=== PATIENT | female | born 1965 | race Caucasian/White ===

== ENCOUNTER 2017-06-17 21:18 | Emergency (ER) | payer MEDICARE ==
[2017-06-17 22:25] LABS: BASOPHILS 0.3 % (0-2); EOSINOPHILS 2.1 % (0-7); HEMATOCRIT 37.3 % (36.0-48.0); HEMOGLOBIN 12.5 g/dL (12-16); IMMATURE GRANULOCYTES 0.2 % (0-5); LYMPHOCYTES 38.7 % (15-50); MCHC 33.5 g/dL (31.0-37.0); MCV 89.7 fL (80.0-100.0); MONOCYTES 4.9 % (2-11); NEUTROPHILS 53.8 % (40-80); PLATELET COUNT 331 10x3/uL (130-400); RBC 4.16 10x6/uL (4.00-5.40); RDW 14.4 % (11.5-14.5); WBC 10.7 10x3/uL (4.8-10.8)
[2017-06-17 22:45] LABS: BILIRUBIN - TOTAL 0.12 mg/dL (0.2-1.3); CALCIUM 8.7 mg/dL (8.5-10.1); CARBON DIOXIDE 26.2 mmol/L (21.0-32.0); POTASSIUM - SERUM 3.2 mmol/L (3.5-5.1); PROTEIN - SERUM 7.1 g/dL (6.4-8.2)
[2017-06-17 22:45] LABS: APPEARANCE CLEAR (CLEAR); COLOR YELLOW (YELLOW); SPECIFIC GRAVITY 1.015 (1.005-1.020)
[2017-06-17 22:46] LABS: BILIRUBIN NEGATIVE (NEGATIVE); GLUCOSE NEGATIVE (NEGATIVE); KETONE NEGATIVE (NEGATIVE); LEUKOCYTE ESTERASE NEGATIVE (NEGATIVE); NITRITE NEGATIVE (NEGATIVE); PROTEIN NEGATIVE (NEGATIVE); UROBILINOGEN NORMAL (NORMAL)
== END 2017-06-18 01:35 | disposition home or self-care (01) ==
LOC: D.ER 21:18
PROVIDERS: Emergency Medicine
DX: R11.10 Vomiting, unspecified (principal); N39.0 Urinary tract infection, site not specified; Z32.01 Encounter for pregnancy test, result positive; I10 Essential (primary) hypertension

== ENCOUNTER 2017-07-18 23:38 | Emergency (ER) | payer MEDICARE ==
[2017-07-19 00:06] LABS: BASOPHILS 0.3 % (0-2); EOSINOPHILS 3.8 % (0-7); HEMATOCRIT 37.6 % (36.0-48.0); HEMOGLOBIN 12.8 g/dL (12-16); IMMATURE GRANULOCYTES 0.2 % (0-5); LYMPHOCYTES 43.9 % (15-50); MCH 30.3 pg (26.0-34.0); MCV 88.9 fL (80.0-100.0); NEUTROPHILS 46.8 % (40-80); PLATELET COUNT 335 10x3/uL (130-400); RBC 4.23 10x6/uL (4.00-5.40); RDW 14.9 % (11.5-14.5); WBC 9.8 10x3/uL (4.8-10.8)
[2017-07-19 00:13] LABS: APPEARANCE CLEAR (CLEAR); BILIRUBIN NEGATIVE (NEGATIVE); COLOR YELLOW (YELLOW); GLUCOSE NEGATIVE (NEGATIVE); KETONE NEGATIVE (NEGATIVE); NITRITE NEGATIVE (NEGATIVE); PROTEIN NEGATIVE (NEGATIVE); SPECIFIC GRAVITY 1.005 (1.005-1.020); UROBILINOGEN NORMAL (NORMAL)
[2017-07-19 00:20] LABS: ALBUMIN 3.4 g/dL (3.4-5.0); ANION GAP 13.8 mmol/L (8-16); BILIRUBIN - TOTAL 0.12 mg/dL (0.2-1.3); CALCIUM 9.1 mg/dL (8.5-10.1); POTASSIUM - SERUM 3.8 mmol/L (3.5-5.1); PROTEIN - SERUM 7.4 g/dL (6.4-8.2)
== END 2017-07-19 01:08 | disposition home or self-care (01) ==
LOC: D.ER 23:38
PROVIDERS: Family Medicine
DX: R19.7 Diarrhea, unspecified (principal); K52.9 Noninfective gastroenteritis and colitis, unspecified; I10 Essential (primary) hypertension; F17.200 Nicotine dependence, unspecified, uncomplicated

== ENCOUNTER 2017-09-11 23:29 | Emergency (ER) | payer MEDICARE | END 2017-09-12 00:23 | disposition home or self-care (01) | LOC: D.ER 23:29 | DX: J01.90 Acute sinusitis, unspecified (principal); R50.9 Fever, unspecified; R05 Cough; F17.200 Nicotine dependence, unspecified, uncomplicated; I10 Essential (primary) hypertension ==

== ENCOUNTER 2017-10-05 16:50 | Emergency (ER) | payer MEDICARE ==
[2017-10-05 17:57] LABS: BASOPHILS 0.3 % (0-2); EOSINOPHILS 2.4 % (0-7); HEMATOCRIT 39.4 % (36.0-48.0); IMMATURE GRANULOCYTES 0.2 % (0-5); LYMPHOCYTES 28.2 % (15-50); MCH 30.4 pg (26.0-34.0); MCV 92.1 fL (80.0-100.0); MEAN PLATELET VOLUME 9.1 fL (7.4-10.4); MONOCYTES 4.1 % (2-11); NEUTROPHILS 64.8 % (40-80); PLATELET COUNT 316 10x3/uL (130-400); RBC 4.28 10x6/uL (4.00-5.40); RDW 13.8 % (11.5-14.5); WBC 10.6 10x3/uL (4.8-10.8)
== END 2017-10-05 19:45 | disposition home or self-care (01) ==
LOC: D.ER 16:50
PROVIDERS: Family Medicine
DX: J20.9 Acute bronchitis, unspecified (principal); J06.9 Acute upper respiratory infection, unspecified; I10 Essential (primary) hypertension; F17.200 Nicotine dependence, unspecified, uncomplicated

== ENCOUNTER 2017-12-31 04:37 | Emergency (ER) | payer MEDICARE ==
[2017-12-31 05:25] LABS: BASOPHILS 0.5 % (0-2); EOSINOPHILS 3.3 % (0-7); IMMATURE GRANULOCYTES 0.2 % (0-5); LYMPHOCYTES 32.9 % (15-50); MCH 30.8 pg (26.0-34.0); MCHC 33.3 g/dL (31.0-37.0); MCV 92.3 fL (80.0-100.0); MEAN PLATELET VOLUME 9.3 fL (7.4-10.4); MONOCYTES 6.9 % (2-11); NEUTROPHILS 56.2 % (40-80); PLATELET COUNT 335 10x3/uL (130-400); RDW 13.6 % (11.5-14.5); WBC 9.3 10x3/uL (4.8-10.8)
[2017-12-31 05:47] LABS: INR 1.05 (0.85-1.17); PROTIME 13.3 SECONDS (11.6-15.0)
[2017-12-31 05:48] LABS: APTT 29.4 SECONDS (22.8-39.4)
[2017-12-31 05:49] LABS: D-DIMER-QUANTITATIVE 0.31 ug/mLFEU (0.20-0.54)
[2017-12-31 06:02] LABS: ALBUMIN 3.2 g/dL (3.4-5.0); ALKALINE PHOSPHATASE 129 U/L (46-116); ALT (SGPT) 17 U/L (10-68); BILIRUBIN - TOTAL 0.21 mg/dL (0.2-1.3); CALC OSMOLALITY 281 mosm/kg (275-300); CALCIUM 9.2 mg/dL (8.5-10.1); CARBON DIOXIDE 22.7 mmol/L (21.0-32.0); CHLORIDE - SERUM 106 mmol/L (98-107); CHOL - HDL RATIO 4.6 ratio (2.3-4.1); CHOLESTEROL, TOTAL 143 mg/dL (0-200); CKMB 0.5 U/L (0.0-3.6); CREATINE KINASE 58 UL (21-215); CREATININE - SERUM 0.9 mg/dL (0.6-1.3); GLUCOSE 105 mg/dL (74-106); HDL CHOLESTEROL 31 mg/dL (32-96); MAGNESIUM - SERUM 1.9 mg/dL (1.8-2.4); POTASSIUM - SERUM 3.5 mmol/L (3.5-5.1); PROTEIN - SERUM 7.1 g/dL (6.4-8.2); SODIUM 141 mmol/L (136-145); TRIGLYCERIDE 491 mg/dL (30-200); TROPONIN-I < 0.017 ng/mL (0.000-0.060); UREA NITROGEN 14 mg/dL (7-18); eGFR NON AFRICAN AMERICAN 70 mL/min (90-120)
== END 2017-12-31 09:53 | disposition home or self-care (01) ==
LOC: D.ER 04:37
PROVIDERS: Family Medicine
DX: R07.9 Chest pain, unspecified (principal); I10 Essential (primary) hypertension

== ENCOUNTER 2018-05-01 22:13 | Emergency (ER) | payer MEDICARE ==
[~2018-05-01] VITALS: Ht 170.2 cm; Wt 90.9 kg
[2018-05-01] MEDS ORDERED: ZANAFLEX4 MG PO (22:35)
[2018-05-01 22:36] VITALS: Ht 170.2 cm; Wt 90.9 kg
[2018-05-02] MEDS ORDERED: NAPROSYN500 MG PO (00:08)
[2018-05-02] MEDS ORDERED: STERAPRED DS 1010 MG PO (00:08)
[2018-05-02 01:08] VITALS: BP 122/70
== END 2018-05-02 01:08 | disposition home or self-care (01) ==
LOC: D.ER 22:13
DX: M54.12 Radiculopathy, cervical region (principal); M54.6 Pain in thoracic spine; F17.200 Nicotine dependence, unspecified, uncomplicated

== ENCOUNTER 2018-06-20 21:02 | Emergency (ER) | payer MEDICARE ==
[~2018-06-20] VITALS: Ht 170.2 cm; Wt 90.9 kg
[~2018-06-20 21:02] MED LIST: NAPROSYN500 MG PO; STERAPRED DS 1010 MG PO; ZANAFLEX4 MG PO
[2018-06-20 21:15] VITALS: Ht 170.2 cm; Wt 90.9 kg
[2018-06-20] MEDS ORDERED: VIBRAMYCIN 100100 MG PO (21:38)
[2018-06-20] MEDS ORDERED: PHENERGAN DM SYR5 ML PO (21:38)
[2018-06-20 22:42] VITALS: BP 158/87
== END 2018-06-20 22:42 | disposition home or self-care (01) ==
LOC: D.ER 21:02
DX: J40 Bronchitis, not specified as acute or chronic (principal); J06.9 Acute upper respiratory infection, unspecified; R09.89 Other specified symptoms and signs involving the circulatory and respiratory systems; J02.9 Acute pharyngitis, unspecified; F17.200 Nicotine dependence, unspecified, uncomplicated

== ENCOUNTER 2018-09-07 20:26 | Emergency (ER) | payer MEDICARE ==
[~2018-09-07] VITALS: Ht 170.2 cm; Wt 90.9 kg
[~2018-09-07 20:26] MED LIST changes: +PHENERGAN DM SYR5 ML PO; +VIBRAMYCIN 100100 MG PO
[2018-09-07 20:32] VITALS: Ht 170.2 cm; Wt 90.9 kg
[2018-09-07] MEDS ORDERED: NORVASC5 MG PO (20:36)
[2018-09-07] MEDS ORDERED: TOPROL XL100 MG PO (20:36)
[2018-09-07] MEDS ORDERED: LOPID600 MG PO (20:36)
[2018-09-07] MEDS ORDERED: ESTRACE2 MG PO (20:37)
[2018-09-07] MEDS ORDERED: TRAZODONE HCL150 MG PO (20:37)
[2018-09-07] MEDS ORDERED: VOLTAREN75 MG PO (20:37)
[2018-09-07] MEDS ORDERED: PAXIL20 MG PO (20:37)
[2018-09-07] MEDS ORDERED: KLONOPIN1 MG PO (20:38)
[2018-09-07] MEDS ORDERED: NEURONTIN600 MG PO (20:38)
[2018-09-07] MEDS ORDERED: ZPAK PO (21:29)
[2018-09-07 22:34] VITALS: BP 128/71
== END 2018-09-07 22:05 | disposition home or self-care (01) ==
LOC: D.ER 20:26
DX: J06.9 Acute upper respiratory infection, unspecified (principal); M79.18 Myalgia, other site; R11.10 Vomiting, unspecified; F17.200 Nicotine dependence, unspecified, uncomplicated

== ENCOUNTER 2018-11-19 17:12 | Emergency (ER) | payer MEDICARE ==
[~2018-11-19] VITALS: Ht 170.2 cm; Wt 90.9 kg
[~2018-11-19 17:12] MED LIST changes: +ESTRACE2 MG PO; +KLONOPIN1 MG PO; +LOPID600 MG PO; +NEURONTIN600 MG PO; +NORVASC5 MG PO; +PAXIL20 MG PO; +TOPROL XL100 MG PO; +TRAZODONE HCL150 MG PO; +VOLTAREN75 MG PO; +ZPAK PO
[2018-11-19 17:31] VITALS: Ht 170.2 cm; Wt 90.9 kg
[2018-11-19] MEDS ORDERED: ZPAK PO (20:31)
[2018-11-19 20:50] VITALS: BP 132/85
[2018-11-20] MEDS ORDERED: MEDROL DOSE PACK4 MG PO (21:50)
[2018-11-20] MEDS ORDERED: CLARITIN 10 MG10 MG PO (21:50)
== END 2018-11-19 20:51 | disposition home or self-care (01) ==
LOC: D.ER 17:12
DX: J40 Bronchitis, not specified as acute or chronic (principal); J06.9 Acute upper respiratory infection, unspecified

== ENCOUNTER 2018-11-20 19:34 | Emergency (ER) | payer MEDICARE ==
[~2018-11-20] VITALS: Ht 170.2 cm; Wt 90.9 kg
[2018-11-20 19:38] VITALS: Ht 170.2 cm; Wt 90.9 kg
[2018-11-20] MEDS ORDERED: MEDROL DOSE PACK4 MG PO (21:50)
[2018-11-20] MEDS ORDERED: CLARITIN 10 MG10 MG PO (21:50)
[2018-11-20 22:30] VITALS: BP 132/79
== END 2018-11-20 22:30 | disposition home or self-care (01) ==
LOC: D.ER 19:34
DX: J40 Bronchitis, not specified as acute or chronic (principal); F17.200 Nicotine dependence, unspecified, uncomplicated

== ENCOUNTER 2018-11-27 21:16 | Emergency (ER) | payer MEDICARE ==
[~2018-11-27] VITALS: Ht 170.2 cm; Wt 90.9 kg
[~2018-11-27 21:16] MED LIST changes: +CLARITIN 10 MG10 MG PO; +MEDROL DOSE PACK4 MG PO
[2018-11-27 21:23] VITALS: Ht 170.2 cm; Wt 90.9 kg
[2018-11-27 22:45] VITALS: BP 40/82
== END 2018-11-27 22:45 | disposition home or self-care (01) ==
LOC: D.ER 21:16
DX: S80.11XA Contusion of right lower leg, initial encounter (principal); W18.2XXA Fall in (into) shower or empty bathtub, initial encounter; Y93.E1 Activity, personal bathing and showering; Y92.012 Bathroom of single-family (private) house as the place of occurrence of the external cause; J01.90 Acute sinusitis, unspecified; I10 Essential (primary) hypertension

== ENCOUNTER 2018-12-24 23:00 | Emergency (ER) | payer MEDICARE ==
[~2018-12-24] VITALS: Ht 170.2 cm; Wt 100.0 kg
[2018-12-24 23:23] VITALS: Ht 170.2 cm; Wt 100.0 kg
[2018-12-25] MEDS ORDERED: ULTRAM50 MG PO (00:09)
[2018-12-25 00:25] VITALS: BP 132/81
== END 2018-12-25 00:25 | disposition home or self-care (01) ==
LOC: D.ER 23:00
DX: M54.16 Radiculopathy, lumbar region (principal)

== ENCOUNTER 2019-01-13 19:49 | Emergency (ER) | payer MEDICARE ==
[~2019-01-13] VITALS: Ht 170.2 cm; Wt 90.9 kg
[~2019-01-13 19:49] MED LIST changes: +ULTRAM50 MG PO
[2019-01-13 19:54] VITALS: Ht 170.2 cm; Wt 90.9 kg
[2019-01-13] MEDS ORDERED: SKELAXIN800 MG PO (20:33)
[2019-01-13] MEDS ORDERED: ACETAMINOPHEN500 M1 PO (20:33)
[2019-01-13] MEDS ORDERED: IBUPROFEN800 MG PO (20:33)
--- NOTE | 2019-01-13 20:48 | NUR ---
CM faxed referral to [facility] #[phone]. Patient is in agreement to same. CM verified phone number,address. Faye Hathaway RN, CM
[2019-01-13 21:14] VITALS: BP 138/78
== END 2019-01-13 21:15 | disposition home or self-care (01) ==
LOC: D.ER 19:49
DX: M54.5 Low back pain (principal)

== ENCOUNTER 2019-05-22 00:53 | Emergency (ER) | payer MEDICARE ==
[~2019-05-22] VITALS: Ht 170.2 cm; Wt 90.9 kg
[~2019-05-22 00:53] MED LIST changes: +ACETAMINOPHEN500 M1 PO; +IBUPROFEN800 MG PO; +SKELAXIN800 MG PO
[2019-05-22 00:57] VITALS: Ht 170.2 cm; Wt 90.9 kg
[2019-05-22 01:31] LABS: HEMATOCRIT 35.7 % (36.0-48.0); HEMOGLOBIN 12.1 g/dL (12-16); MCH 28.9 pg (26.0-34.0); MCHC 33.9 g/dL (31.0-37.0); MCV 85.2 fL (80.0-100.0); MEAN PLATELET VOLUME 8.7 fL (7.4-10.4); RBC 4.19 10x6/uL (4.00-5.40); RDW 14.6 % (11.5-14.5); WBC 13.3 10x3/uL (4.8-10.8)
[2019-05-22 01:32] LABS: PLATELET COUNT 426 10x3/uL (130-400)
[2019-05-22 01:50] LABS: ALBUMIN 3.2 g/dL (3.4-5.0); ANION GAP 15.3 mmol/L (8-16); BILIRUBIN - TOTAL 0.21 mg/dL (0.2-1.3); C-REACTIVE PROTEIN 1.5 mg/dL (0.0-0.9); CALCIUM 8.7 mg/dL (8.5-10.1); CARBON DIOXIDE 23.1 mmol/L (21.0-32.0); POTASSIUM - SERUM 3.4 mmol/L (3.5-5.1); PROTEIN - SERUM 7.6 g/dL (6.4-8.2); THYROID STIMULATING HORMONE 4.43 uIU/mL (0.36-3.74)
[2019-05-22] MEDS ORDERED: KLOR-CON 1010 MEQ PO (02:00)
[2019-05-22] MEDS ORDERED: LEVOXYL50 MCG PO (02:00)
[2019-05-22 02:03] LABS: EOSINOPHILS 3 % (0-7); LYMPHOCYTES 25 % (15-50); MONOCYTES 6 % (2-11); NEUTROPHILS 65 % (40-80); PLATELET ESTIMATE INCREASED
[2019-05-22 02:50] VITALS: BP 130/75
== END 2019-05-22 02:49 | disposition home or self-care (01) ==
LOC: D.ER 00:53
PROVIDERS: Family Medicine
DX: R25.2 Cramp and spasm (principal); R74.8 Abnormal levels of other serum enzymes; M79.18 Myalgia, other site; E87.6 Hypokalemia

== ENCOUNTER 2019-06-03 23:04 | Emergency (ER) | payer MEDICARE ==
[~2019-06-03] VITALS: Ht 170.2 cm; Wt 103.6 kg
[~2019-06-03 23:04] MED LIST changes: +KLOR-CON 1010 MEQ PO; +LEVOXYL50 MCG PO
[2019-06-03 23:09] VITALS: Ht 170.2 cm; Wt 103.6 kg
[2019-06-03 23:34] LABS: BASOPHILS 0.4 % (0-2); EOSINOPHILS 2.7 % (0-7); HEMATOCRIT 35.2 % (36.0-48.0); HEMOGLOBIN 11.8 g/dL (12-16); IMMATURE GRANULOCYTES 0.1 % (0-5); MCH 28.7 pg (26.0-34.0); MCHC 33.5 g/dL (31.0-37.0); MCV 85.6 fL (80.0-100.0); MONOCYTES 6.7 % (2-11); NEUTROPHILS 63.1 % (40-80); PLATELET COUNT 398 10x3/uL (130-400); RBC 4.11 10x6/uL (4.00-5.40); WBC 6.7 10x3/uL (4.8-10.8)
[2019-06-03 23:40] LABS: ANION GAP 13.8 mmol/L (8-16); CARBON DIOXIDE 26.1 mmol/L (21.0-32.0); POTASSIUM - SERUM 3.9 mmol/L (3.5-5.1)
[2019-06-03 23:52] LABS: ALBUMIN 3.3 g/dL (3.4-5.0); BILIRUBIN - TOTAL 0.17 mg/dL (0.2-1.3); CALCIUM 8.6 mg/dL (8.5-10.1); PROTEIN - SERUM 7.3 g/dL (6.4-8.2)
[2019-06-04] MEDS ORDERED: LOMOTIL 2.5-0.1 EAC1 PO (00:43)
[2019-06-04] MEDS ORDERED: PHENERGAN25 MG RC (00:43)
[2019-06-04 02:04] VITALS: BP 137/79
== END 2019-06-04 02:04 | disposition home or self-care (01) ==
LOC: D.ER 23:04
PROVIDERS: Emergency Medicine
DX: R11.10 Vomiting, unspecified (principal); D64.9 Anemia, unspecified; R19.7 Diarrhea, unspecified

== ENCOUNTER 2019-06-17 02:48 | Emergency (ER) | payer MEDICARE ==
[~2019-06-17] VITALS: Ht 170.2 cm; Wt 104.5 kg
[~2019-06-17 02:48] MED LIST changes: +LOMOTIL 2.5-0.1 EAC1 PO; +PHENERGAN25 MG RC
[2019-06-17 02:53] VITALS: Ht 170.2 cm; Wt 104.5 kg
[2019-06-17] MEDS ORDERED: HYDROCODON-ACE1 EA10 PO (02:57)
[2019-06-17] MEDS ORDERED: CYCLOBENZAPRINE10 MG PO (03:37)
--- NOTE | 2019-06-17 03:53 | NUR ---
DR FELDER NOTIFIED AND REVIEWED PT'S BEHAVIOR AND ASSESSMENT RESULTS. PT IS A LOW RISK PER DR FELDER. DR FELDER STATED TO GIVE RESOURCES TO PT AT TIME OF DISCHARGE. NO FURTHER ORDERS AT THIS TIME. RESOURCES REVIEWED WITH PT AND SHE VERBALIZED UNDERSTANDING.
[2019-06-17 03:59] VITALS: BP 127/76
== END 2019-06-17 04:00 | disposition home or self-care (01) ==
LOC: D.ER 02:48
DX: S16.1XXA Strain of muscle, fascia and tendon at neck level, initial encounter (principal); X58.XXXA Exposure to other specified factors, initial encounter

== ENCOUNTER 2019-07-03 23:04 | Emergency (ER) | payer MEDICARE ==
[~2019-07-03] VITALS: Ht 170.2 cm; Wt 103.6 kg
[~2019-07-03 23:04] MED LIST changes: +CYCLOBENZAPRINE10 MG PO; +HYDROCODON-ACE1 EA10 PO
[2019-07-03 23:06] VITALS: Ht 170.2 cm; Wt 103.6 kg
[2019-07-03] MEDS ORDERED: PAXIL40 MG PO (23:09)
[2019-07-03] MEDS ORDERED: NEURONTIN800 MG PO (23:09)
[2019-07-03 23:39] LABS: BASOPHILS 0.4 % (0-2); EOSINOPHILS 2.4 % (0-7); HEMATOCRIT 35.1 % (36.0-48.0); HEMOGLOBIN 11.3 g/dL (12-16); IMMATURE GRANULOCYTES 0.4 % (0-5); LYMPHOCYTES 28.8 % (15-50); MCH 27.4 pg (26.0-34.0); MCHC 32.2 g/dL (31.0-37.0); MEAN PLATELET VOLUME 8.7 fL (7.4-10.4); MONOCYTES 6.8 % (2-11); NEUTROPHILS 61.2 % (40-80); PLATELET COUNT 427 10x3/uL (130-400); RBC 4.13 10x6/uL (4.00-5.40); RDW 16.3 % (11.5-14.5); WBC 8.4 10x3/uL (4.8-10.8)
[2019-07-03 23:58] LABS: ALBUMIN 3.2 g/dL (3.4-5.0); ANION GAP 14.9 mmol/L (8-16); BILIRUBIN - TOTAL 0.2 mg/dL (0.2-1.3); CALCIUM 8.9 mg/dL (8.5-10.1); CARBON DIOXIDE 24.9 mmol/L (21.0-32.0); CREATININE - SERUM 0.9 mg/dL (0.6-1.3); POTASSIUM - SERUM 3.8 mmol/L (3.5-5.1); PROTEIN - SERUM 7.5 g/dL (6.4-8.2)
[2019-07-04 00:23] LABS: APPEARANCE CLEAR (CLEAR); BILIRUBIN NEGATIVE (NEGATIVE); COLOR YELLOW (YELLOW); GLUCOSE NEGATIVE (NEGATIVE); KETONE NEGATIVE (NEGATIVE); NITRITE NEGATIVE (NEGATIVE); PROTEIN NEGATIVE (NEGATIVE); UROBILINOGEN NORMAL (NORMAL)
[2019-07-04 00:24] LABS: EPITHELIAL CELLS 0-5 /hpf (0-5); RED CELLS - URINE 0-5 /hpf (0-5); WHITE CELLS - URINE 0-5 /hpf (NEGATIVE)
[2019-07-04 00:25] LABS: BACTERIA MODERATE /hpf (NEGATIVE)
[2019-07-04] MEDS ORDERED: FLUTICASONE PRO16 GM NASAL (00:34)
[2019-07-04] MEDS ORDERED: AUGMENTIN 875-11 TAB PO (00:34)
[2019-07-04 00:54] VITALS: BP 157/85
== END 2019-07-04 00:55 | disposition home or self-care (01) ==
LOC: D.ER 23:04
PROVIDERS: Family Medicine
DX: J01.90 Acute sinusitis, unspecified (principal); I10 Essential (primary) hypertension; F32.9 Major depressive disorder, single episode, unspecified; F17.210 Nicotine dependence, cigarettes, uncomplicated

== ENCOUNTER 2019-08-19 00:32 | Inpatient (IN) | payer MEDICARE ==
[~2019-08-19] VITALS: Ht 170.2 cm; Wt 104.5 kg
[~2019-08-19 00:32] MED LIST changes: +AUGMENTIN 875-11 TAB PO; +FLUTICASONE PRO16 GM NASAL; +NEURONTIN800 MG PO; +PAXIL40 MG PO
[2019-08-19 01:19] LABS: BASOPHILS 0.6 % (0-2); HEMATOCRIT 36.7 % (36.0-48.0); IMMATURE GRANULOCYTES 0.9 % (0-5); LYMPHOCYTES 30.6 % (15-50); MCH 28.8 pg (26.0-34.0); MCHC 32.7 g/dL (31.0-37.0); MCV 88.2 fL (80.0-100.0); MEAN PLATELET VOLUME 9.3 fL (7.4-10.4); MONOCYTES 5.8 % (2-11); NEUTROPHILS 59.1 % (40-80); PLATELET COUNT 424 10x3/uL (130-400); RBC 4.16 10x6/uL (4.00-5.40); RDW 17.1 % (11.5-14.5)
[2019-08-19 01:25] LABS: CALC OSMOLALITY 279 mosm/kg (275-300); CALCIUM 8.8 mg/dL (8.5-10.1); CARBON DIOXIDE 22.2 mmol/L (21.0-32.0); CHLORIDE - SERUM 105 mmol/L (98-107); CREATININE - SERUM 0.8 mg/dL (0.6-1.3); GLUCOSE 95 mg/dL (74-106); POTASSIUM - SERUM 3.9 mmol/L (3.5-5.1); SODIUM 140 mmol/L (136-145); UREA NITROGEN 16 mg/dL (7-18); eGFR NON AFRICAN AMERICAN 80 mL/min (90-120)
[2019-08-19 01:26] LABS: APTT 30.3 SECONDS (22.8-39.4); INR 0.93 (0.85-1.17)
[2019-08-19 01:41] LABS: ALBUMIN 3.1 g/dL (3.4-5.0); ALKALINE PHOSPHATASE 124 U/L (46-116); ALT (SGPT) 16 U/L (10-68); BILIRUBIN - TOTAL 0.15 mg/dL (0.2-1.3); CKMB 0.7 U/L (0.0-3.6); CREATINE KINASE 55 UL (21-215); PRO BNP 48 pg/mL (0-125); PROTEIN - SERUM 7.6 g/dL (6.4-8.2); TROPONIN-I < 0.017 ng/mL (0.000-0.060)
[2019-08-19 04:30] VITALS: BP 105/56
--- NOTE | 2019-08-19 05:10 | NUR ---
REC'D TO ROOM 2238 PER W/C FROM ER DEPT A 54 Y/O W/FE PER SERVICES DR. CRAIG WITH DX.COUGH/CONGESTION. ALLERGY= REGLAN.SALINE LOCK TO RT WIST O2 ON 4L/M PER NC SOB WITH EXERTION. NON PRODUCTIVE COUGH. ASSEWSSMENT PER ADMIT PACKET.
[2019-08-19 05:22] VITALS: Ht 170.2 cm; Wt 104.5 kg
[2019-08-19] MEDS ORDERED: NEXIUM40 MG PO (06:00)
--- NOTE | 2019-08-19 07:56 | NUR ---
PT RESTING IN BED WITH EYES OPEN, ALERT AND ORIENTED. IV DC`D FROM RIGHT WRIST DUE TO INFILTRATION, WILL RESITE. CURRENTLY RCVING 4L VIA NC. NO S/S OF DISTRESS NOTED AT THIS TIME, DENIES NEEDS, WILL CONT TO MONITOR.
[2019-08-19 09:02] VITALS: BP 138/73
[2019-08-19 13:07] VITALS: BP 122/62
[2019-08-19 16:45] VITALS: BP 145/71
[2019-08-19 19:30] VITALS: BP 124/64
--- NOTE | 2019-08-19 20:00 | NUR ---
A&O X 4, AMBULATORY AD MARY CARMEN. PTs BREATHING APPEARS LABORED. REPORTS HER NOSE IS GETTING INCREASINGLY MORE DRY. HUMIDITY APPLIED TO 4L NC. VS STABLE, CONTINUE PLAN OF CARE.
[2019-08-20] VITALS: BP 124/70
[2019-08-20 04:00] VITALS: BP 112/52
[2019-08-20 06:38] LABS: BASOPHILS 0.1 % (0-2); EOSINOPHILS 0 % (0-7); HEMATOCRIT 33.3 % (36.0-48.0); HEMOGLOBIN 10.6 g/dL (12-16); IMMATURE GRANULOCYTES 1.1 % (0-5); LYMPHOCYTES 7.1 % (15-50); MCH 28.2 pg (26.0-34.0); MCHC 31.8 g/dL (31.0-37.0); MCV 88.6 fL (80.0-100.0); MEAN PLATELET VOLUME 9.1 fL (7.4-10.4); MONOCYTES 2.3 % (2-11); NEUTROPHILS 89.4 % (40-80); PLATELET COUNT 390 10x3/uL (130-400); RBC 3.76 10x6/uL (4.00-5.40); RDW 17.3 % (11.5-14.5)
[2019-08-20 06:47] LABS: WBC 19.1 10x3/uL (4.8-10.8)
[2019-08-20 07:07] LABS: ALBUMIN 3.1 g/dL (3.4-5.0); ALKALINE PHOSPHATASE 111 U/L (46-116); ALT (SGPT) 14 U/L (10-68); BILIRUBIN - TOTAL 0.18 mg/dL (0.2-1.3); CALC OSMOLALITY 279 mosm/kg (275-300); CALCIUM 9.5 mg/dL (8.5-10.1); CHLORIDE - SERUM 105 mmol/L (98-107); CREATININE - SERUM 0.8 mg/dL (0.6-1.3); GLUCOSE 132 mg/dL (74-106); PROTEIN - SERUM 6.9 g/dL (6.4-8.2); SODIUM 138 mmol/L (136-145); UREA NITROGEN 18 mg/dL (7-18); eGFR NON AFRICAN AMERICAN 80 mL/min (90-120)
[2019-08-20 07:09] LABS: POTASSIUM - SERUM 4.5 mmol/L (3.5-5.1)
[2019-08-20 08:07] VITALS: BP 127/66
[2019-08-20 12:58] VITALS: BP 112/56
--- NOTE | 2019-08-20 16:35 | MORECARE ---
CASE MANAGEMENT DISCHARGE SUMMARY PATIENT: DRAKE VOGEL UNIT: [id number] ADM DATE: 08/19/19 AGE: 54 : 69 SEX: F ROOM/BED: D.2238 AUTHOR: ABILIO KUMAR PHYSICIAN: REFERRING PHYSICIAN: YANE CRAIG MD DATE OF SERVICE: 08/20/19 Discharge Plan Patient Name: DRAKE VOGEL [facility] [facility] 1965 Planned Disposition: Home Anticipated Discharge Date: Discharge Date: Expected LOS: Initial Reviewer: [email or web address] Initial Review Date: 08/20/2019 Generated: 08/20/19 5:35 pm Patient Name: DRAKE VOGEL Page 99867 at 1635 All edits/amendments must be made on the electronic document DICTATION DATE: 08/20/191634 SIMONIZER: MICHAEL 08/20/19 1635 RPT#: [id number] DC DATE: STATUS: ADM IN [facility] [address] [place] [address] END OF REPORT
--- NOTE | 2019-08-20 16:43 | MORECARE ---
CASE MANAGEMENT DISCHARGE SUMMARY PATIENT: DRAKE VOGEL UNIT: [id number] ADM DATE: 08/19/19 AGE: 54 : 69 SEX: F ROOM/BED: D.2238 AUTHOR: JOSÉ,DOC PHYSICIAN: REFERRING PHYSICIAN: YANE CRAIG MD DATE OF SERVICE: 08/20/19 Discharge Plan Patient Name: DRAKE VOGEL Facility: [facility]:[place] : 1965 Planned Disposition: Home Anticipated Discharge Date: Discharge Date: Expected LOS: Initial Reviewer: [email or web address] Initial Review Date: 08/20/2019 Generated: 08/20/19 5:42 pm Comments DCP- Discharge Planning Updated by [id number]: Esther Childs on 08/20/19 3:[address] Patient Name: DRAKE VOGEL Admission Status: ER Accout number: [id number] Admission Date: 08-19-2019 : 1965 Admission Diagnosis: Attending: YANE CRAIG Current LOS: 1 Anticipated DC Date: Planned Disposition: Home Primary Insurance: MEDICARE A & B Discharge Planning Comments: CM met with patient to complete initial dc planning assessment. CM educated patient on the CM role and verbal consent given by patient to complete assessment. Patient lives at home alone. At discharge patient plans to return and feels this is a safe discharge. CM discussed availability of home health, rehab services, and medical equipment. Patient denied known discharge needs at this time. I informed the patient that Dr. Carter has stated that she may need an overnight pulse oximeter and a sleep study on an outpatient basis and a NATE form for oxygen DME companies given for her to review. I also provided her with the Med data number to f/u on Medicaid spend down. She is inquiring about a secondary for Medicare. I gave her the number for [employer] as well. CM will continue to follow and will assist as needed with dc plans/needs. Mold Maker Apprentice: Esther Childs DCPIA - Discharge Planning Initial Assessment Updated by [email or web address]: Esther Childs on 08/20/19 4:37 pm * Is the patient Alert and Oriented? Yes * How many steps to enter\exit or inside your home? 10/0 * PCP Dr. Austin Paul * Pharmacy [facility] * Preadmission Environment Home Alone * ADLs Independent * Equipment Cane Shower Chair Walker * List name and contact numbers for known caregivers / representatives who currently or will assist patient after discharge: Jareth Aguilar - son - [phone] Irving angelofriend - [phone] * Verbal permission to speak to the caregivers and representatives has been obtained from the patient. Yes * Community resources currently utilized None * Additional services required to return to the preadmission environment? No * Can the patient safely return to the preadmission environment? Yes * Has this patient been hospitalized within the prior 30 days at any hospital? No Last DP export: 08/20/19 3:35 Patient Name: DRAKE VOGEL Page 94857 at 1643 All edits/amendments must be made on the electronic document DICTATION DATE: 08/20/191642 TAX MAP TECHNICIAN: MICHAEL 08/20/191642 RPT#: [id number] DC DATE: STATUS: ADM IN [facility] [address] [place] [address] END OF REPORT
[2019-08-20 17:43] VITALS: BP 124/68
[2019-08-20 20:00] VITALS: BP 147/81
[2019-08-21] VITALS: BP 140/82
[2019-08-21 04:00] VITALS: BP 146/81
[2019-08-21 06:52] LABS: BASOPHILS 0 % (0-2); EOSINOPHILS 0 % (0-7); HEMATOCRIT 35.2 % (36.0-48.0); HEMOGLOBIN 11.1 g/dL (12-16); IMMATURE GRANULOCYTES 1.5 % (0-5); MCH 28.2 pg (26.0-34.0); MCHC 31.5 g/dL (31.0-37.0); MCV 89.6 fL (80.0-100.0); MEAN PLATELET VOLUME 9.3 fL (7.4-10.4); MONOCYTES 2.5 % (2-11); PLATELET COUNT 426 10x3/uL (130-400); RBC 3.93 10x6/uL (4.00-5.40); RDW 17.6 % (11.5-14.5); WBC 22.2 10x3/uL (4.8-10.8)
[2019-08-21 07:02] LABS: ALBUMIN 3.2 g/dL (3.4-5.0); ALKALINE PHOSPHATASE 106 U/L (46-116); ALT (SGPT) 17 U/L (10-68); BILIRUBIN - TOTAL 0.15 mg/dL (0.2-1.3); CALCIUM 9.6 mg/dL (8.5-10.1); CARBON DIOXIDE 23.2 mmol/L (21.0-32.0); CHLORIDE - SERUM 106 mmol/L (98-107); CREATININE - SERUM 0.8 mg/dL (0.6-1.3); GLUCOSE 135 mg/dL (74-106); POTASSIUM - SERUM 4.2 mmol/L (3.5-5.1); PROTEIN - SERUM 7.1 g/dL (6.4-8.2); SODIUM 141 mmol/L (136-145); eGFR NON AFRICAN AMERICAN 80 mL/min (90-120)
[2019-08-21 07:05] LABS: CALC OSMOLALITY 289 mosm/kg (275-300); UREA NITROGEN 31 mg/dL (7-18)
[2019-08-21 08:10] LABS: IMMUNOGLOBULIN A 226 mg/dL (87-352); IMMUNOGLOBULIN G 850 mg/dL (700-1600)
[2019-08-21 08:45] VITALS: BP 132/68
--- NOTE | 2019-08-21 10:59 | NUR ---
PT ALERT X 4. BREATH SOUNDS CLEAR BILAT, NON-PRODUCTIVE COUGH. NO IV ACCESS AT THIS TIME TIME. PT REPORTING PAIN OF 4/10, MEDICATED PER ORDERS, WILL MONITOR. BED LOW, CALL LIGHT IN REACH. NO OTHER NEEDS AT THIS TIME.
[2019-08-21] MEDS ORDERED: SINGULAIR10 MG PO (12:31)
[2019-08-21] MEDS ORDERED: MUCINEX DM ER1 EAC1 PO (12:31)
[2019-08-21] MEDS ORDERED: FLORAJEN3 CAPS460 MG PO (12:31)
[2019-08-21] MEDS ORDERED: PULMICORT0.5 MG/21 UPD (12:31)
[2019-08-21 12:32] VITALS: BP 152/77
[2019-08-21] MEDS ORDERED: ZITHROMAX500 MG PO (12:32)
[2019-08-21] MEDS ORDERED: OMNICEF300 MG PO (12:32)
[2019-08-21] MEDS ORDERED: PREDNISONE10 MG PO (12:32)
[2019-08-21] MEDS ORDERED: ALBUTEROL2.5 MG/3 M INH (12:33)
[2019-08-21] MEDS ORDERED: Tessalon Perle PO (12:33)
[2019-08-21] MEDS ORDERED: SYMBICORT 16010.2 GM INH (13:05)
[2019-08-21] MEDS ORDERED: IPRAT-ALBUT 0.5-3 ML UPD (13:05)
--- NOTE | 2019-08-21 18:37 | MORECARE ---
CASE MANAGEMENT DISCHARGE SUMMARY PATIENT: DRAKE VOGEL UNIT: [id number] ADM DATE: 08/19/19 AGE: 54 : 69 SEX: F ROOM/BED: D.2238 AUTHOR: JOSÉ,ABILIO PHYSICIAN: REFERRING PHYSICIAN: YANE CRAIG MD DATE OF SERVICE: 08/21/19 Discharge Plan Patient Name: DRAKE VOGEL Facility: [facility]:[place] : 1965 Planned Disposition: Home Anticipated Discharge Date: Discharge Date: 08/21/2019 Expected LOS: Initial Reviewer: [email or web address] Initial Review Date: 08/20/2019 Generated: 08/21/19 7:36 pm Comments DCP- Discharge Planning Updated by [email or web address]: Ave Lorenzo on 08/21/19 5:[address] LATE ENTRY- 1430 PATIENT HAD A NEBULIZER ORDERED. SHE HAD A DME LIST AND SELECTED [facility]. TC TO [facility]. HE CALLED TO SPEAK WITH THE PATIENT. SHE RECEIVED A NEB TREATMENT PRIOR TO DISCHARGE. THE NEBULIZER WILL BE DELIVERED TO HER HOME. WATCH REPAIR TECHNICIAN SPOKE WITH THE PATIENT. THE WATCH REPAIR TECHNICIAN CAME ON SITE TO OBTAIN THE FACE SHEET, MD ORDER AND CLINICAL INFORMATION FOR THE NEB PRIOR TO DELIVERY. DCP- Discharge Planning Updated by [email or web address]: Esther Childs on 08/20/19 3:[address] Patient Name: DRAKE VOGEL Admission Status: ER Accout number: [id number] Admission Date: 08-19-2019 : 1965 Admission Diagnosis: Attending: YANE CRAIG Current LOS: 1 Anticipated DC Date: Planned Disposition: Home Primary Insurance: MEDICARE A & B Discharge Planning Comments: CM met with patient to complete initial dc planning assessment. CM educated patient on the CM role and verbal consent given by patient to complete assessment. Patient lives at home alone. At discharge patient plans to return and feels this is a safe discharge. CM discussed availability of home health, rehab services, and medical equipment. Patient denied known discharge needs at this time. I informed the patient that Dr. Carter has stated that she may need an overnight pulse oximeter and a sleep study on an outpatient basis and a NATE form for oxygen DME companies given for her to review. I also provided her with the Med data number to f/u on Medicaid spend down. She is inquiring about a secondary for Medicare. I gave her the number for [employer] as well. CM will continue to follow and will assist as needed with dc plans/needs. Nursing Home Director: Esther Childs DCPIA - Discharge Planning Initial Assessment Updated by [email or web address]: Esther Childs on 08/20/19 4:37 pm * Is the patient Alert and Oriented? Yes * How many steps to enter\exit or inside your home? 10/0 * PCP Dr. Austin Paul * Pharmacy [facility] * Preadmission Environment Home Alone * ADLs Independent * Equipment Cane Shower Chair Walker * List name and contact numbers for known caregivers / representatives who currently or will assist patient after discharge: Jareth Aguilar - rossy - [phone] Irving anderson - [phone] * Verbal permission to speak to the caregivers and representatives has been obtained from the patient. Yes * Community resources currently utilized None * Additional services required to return to the preadmission environment? No * Can the patient safely return to the preadmission environment? Yes * Has this patient been hospitalized within the prior 30 days at any hospital? No Coverage Notice Reviewer: [email or web address] Lauro Lorenzo Notice Issued Date-Time: 08/21/2019 15:31 Notice Type: IM Discharge Notice Notice Delivered To: Patient Relationship to Patient: Self Epic Kaleidoscope Analyst Name: Delivery Method: HAND - Hand Delivered Arlene Days: Prior Verbal Notification: Recipient Understood Notice: Yes Recipient Signature: Yes Med Rec Note Co-signed by Attending: Coverage Notice Comment: DISCHARGE IMM EXPLAINED ANS SERVED AT 1531. PATIENT HAD NO QUESTIONS. VOICED NO CONCERNS. SIGNED COPY TO THE PATIENT. SIGNED COPY TO THE CHART. Reviewer: [email or web address] - Ave Lorenzo Notice Issued Date-Time: 08/21/2019 14:32 Notice Type: Patient Choice Letter Notice Delivered To: Patient Relationship to Patient: Self Epic Kaleidoscope Analyst Name: Delivery Method: HAND - Hand Delivered Arlene Days: Prior Verbal Notification: Recipient Understood Notice: Yes Recipient Signature: Yes Med Rec Note Co-signed by Attending: Coverage Notice Comment: PATIENT CHOICE FORM OBTAINED FOR NEBULIZER. [facility] SELECTED. SIGNED COPY TO THE PATIENT. SIGNED COPY TO HARD COVER CHART Last DP export: 08/20/19 3:43 Patient Name: DRAKE VOGEL Page 62867 at 1837 All edits/amendments must be made on the electronic document DICTATION DATE: 08/21/191835 OPERATIONS INTELLIGENCE SUPERINTENDENT: MICHAEL 08/21/191835 RPT#: [id number] DC DATE:08/21/19 STATUS: DIS IN [facility] [address] [place] [address] END OF REPORT
--- NOTE | 2019-08-23 14:18 | MORECARE ---
CASE MANAGEMENT DISCHARGE SUMMARY PATIENT: DRAKE VOGEL UNIT: [id number] ADM DATE: 08/19/19 AGE: 54 : 69 SEX: F ROOM/BED: D.2238 AUTHOR: ABILIO KUMAR PHYSICIAN: REFERRING PHYSICIAN: YANE CRAIG MD DATE OF SERVICE: 08/23/19 Discharge Plan Patient Name: DRAKE VOGEL Facility: [facility]:[place] : 1965 Planned Disposition: Home Anticipated Discharge Date: Discharge Date: 08/21/2019 Expected LOS: Initial Reviewer: [email or web address] Initial Review Date: 08/20/2019 Generated: 08/23/19 3:17 pm Comments DCP- Discharge Planning Updated by [email or web address]: Ave Lorenzo on 08/21/19 5:[address] LATE ENTRY- 1430 PATIENT HAD A NEBULIZER ORDERED. SHE HAD A DME LIST AND SELECTED [facility]. TC TO [facility]. HE CALLED TO SPEAK WITH THE PATIENT. SHE RECEIVED A NEB TREATMENT PRIOR TO DISCHARGE. THE NEBULIZER WILL BE DELIVERED TO HER HOME. HOGSHEAD BUILDER SPOKE WITH THE PATIENT. THE HOGSHEAD BUILDER CAME ON SITE TO OBTAIN THE FACE SHEET, MD ORDER AND CLINICAL INFORMATION FOR THE NEB PRIOR TO DELIVERY. DCP- Discharge Planning Updated by [email or web address]: Esther Childs on 08/20/19 3:[address] Patient Name: DRAKE VOGEL Admission Status: ER Accout number: [id number] Admission Date: 08-19-2019 : 1965 Admission Diagnosis: Attending: YANE CRAIG Current LOS: 1 Anticipated DC Date: Planned Disposition: Home Primary Insurance: MEDICARE A & B Discharge Planning Comments: CM met with patient to complete initial dc planning assessment. CM educated patient on the CM role and verbal consent given by patient to complete assessment. Patient lives at home alone. At discharge patient plans to return and feels this is a safe discharge. CM discussed availability of home health, rehab services, and medical equipment. Patient denied known discharge needs at this time. I informed the patient that Dr. Carter has stated that she may need an overnight pulse oximeter and a sleep study on an outpatient basis and a NATE form for oxygen DME companies given for her to review. I also provided her with the Med data number to f/u on Medicaid spend down. She is inquiring about a secondary for Medicare. I gave her the number for [employer] as well. CM will continue to follow and will assist as needed with dc plans/needs. Model Maker: Esther Childs DCPIA - Discharge Planning Initial Assessment Updated by [email or web address]: Esther Childs on 08/20/19 4:37 pm * Is the patient Alert and Oriented? Yes * How many steps to enter\exit or inside your home? 10/0 * PCP Dr. Austin Paul * Pharmacy [facility] * Preadmission Environment Home Alone * ADLs Independent * Equipment Cane Shower Chair Walker * List name and contact numbers for known caregivers / representatives who currently or will assist patient after discharge: Jareth Aguilar - rossy - [phone] Irving anderson - [phone] * Verbal permission to speak to the caregivers and representatives has been obtained from the patient. Yes * Community resources currently utilized None * Additional services required to return to the preadmission environment? No * Can the patient safely return to the preadmission environment? Yes * Has this patient been hospitalized within the prior 30 days at any hospital? No Coverage Notice Reviewer: [email or web address] Lauro Lorenzo Notice Issued Date-Time: 08/21/2019 15:31 Notice Type: IM Discharge Notice Notice Delivered To: Patient Relationship to Patient: Self Training Assistant Name: Delivery Method: HAND - Hand Delivered Arlene Days: Prior Verbal Notification: Recipient Understood Notice: Yes Recipient Signature: Yes Med Rec Note Co-signed by Attending: Coverage Notice Comment: DISCHARGE IMM EXPLAINED ANS SERVED AT 1531. PATIENT HAD NO QUESTIONS. VOICED NO CONCERNS. SIGNED COPY TO THE PATIENT. SIGNED COPY TO THE CHART. Reviewer: [id number] - Ave Lorenzo Notice Issued Date-Time: 08/21/2019 14:32 Notice Type: Patient Choice Letter Notice Delivered To: Patient Relationship to Patient: Self Training Assistant Name: Delivery Method: HAND - Hand Delivered Arlene Days: Prior Verbal Notification: Recipient Understood Notice: Yes Recipient Signature: Yes Med Rec Note Co-signed by Attending: Coverage Notice Comment: PATIENT CHOICE FORM OBTAINED FOR NEBULIZER. [facility] SELECTED. SIGNED COPY TO THE PATIENT. SIGNED COPY TO HARD COVER CHART Last DP export: 08/21/19 5:37 Patient Name: DRAKE VOGEL Page 84705 at 1418 All edits/amendments must be made on the electronic document DICTATION DATE: 08/23/191416 RESIDENTIAL REMODELING SUBCONTRACTOR: MICHAEL 08/23/191416 RPT#: [id number] DC DATE:08/21/19 STATUS: DIS IN [facility] [address] [place] [address] END OF REPORT
[2019-08-23 15:09] LABS: IMMUNOGLOBULIN E 12 IU/mL (6-495)
== END 2019-08-21 15:48 | disposition home or self-care (01) | DRG 189 ==
LOC: D.ER 00:32 → D.MS 04:11
PROVIDERS: Family Medicine; Internal Medicine Pulmonary Disease; ADMIT Internal Medicine Nephrology; ATTEND Internal Medicine Nephrology
DX: J96.01 Acute respiratory failure with hypoxia (principal); J44.0 Chronic obstructive pulmonary disease with (acute) lower respiratory infection; F17.203 Nicotine dependence unspecified, with withdrawal; J44.1 Chronic obstructive pulmonary disease with (acute) exacerbation; J20.9 Acute bronchitis, unspecified; M79.7 Fibromyalgia; E03.9 Hypothyroidism, unspecified; I10 Essential (primary) hypertension; F41.8 Other specified anxiety disorders; E66.9 Obesity, unspecified; Z68.36 Body mass index [BMI] 36.0-36.9, adult; K21.9 Gastro-esophageal reflux disease without esophagitis; D50.9 Iron deficiency anemia, unspecified; R60.0 Localized edema

== ENCOUNTER 2019-09-01 02:59 | Emergency (ER) | payer MEDICARE ==
[~2019-09-01] VITALS: Ht 170.2 cm; Wt 104.5 kg
[~2019-09-01 02:59] MED LIST changes: +ALBUTEROL2.5 MG/3 M INH; +FLORAJEN3 CAPS460 MG PO; +IPRAT-ALBUT 0.5-3 ML UPD; +MUCINEX DM ER1 EAC1 PO; +NEXIUM40 MG PO; +OMNICEF300 MG PO; +PREDNISONE10 MG PO; +PULMICORT0.5 MG/21 UPD; +SINGULAIR10 MG PO; +SYMBICORT 16010.2 GM INH; +Tessalon Perle PO; +ZITHROMAX500 MG PO
[2019-09-01 03:08] VITALS: Ht 170.2 cm; Wt 104.5 kg
[2019-09-01] MEDS ORDERED: FEXOFENADINE H180 MG PO (03:39)
[2019-09-01] MEDS ORDERED: KEFLEX500 MG PO (03:55)
[2019-09-01 05:40] VITALS: BP 114/71
[2019-09-01 05:58] LABS: BASOPHILS 0.2 % (0-2); EOSINOPHILS 1.9 % (0-7); HEMATOCRIT 38.4 % (36.0-48.0); HEMOGLOBIN 12.2 g/dL (12-16); IMMATURE GRANULOCYTES 1.4 % (0-5); LYMPHOCYTES 29.1 % (15-50); MCH 28.8 pg (26.0-34.0); MCHC 31.8 g/dL (31.0-37.0); MCV 90.6 fL (80.0-100.0); MEAN PLATELET VOLUME 9.4 fL (7.4-10.4); MONOCYTES 5.5 % (2-11); NEUTROPHILS 61.9 % (40-80); PLATELET COUNT 363 10x3/uL (130-400); RBC 4.24 10x6/uL (4.00-5.40); RDW 16.9 % (11.5-14.5); WBC 15.8 10x3/uL (4.8-10.8)
[2019-09-01 05:59] LABS: ANION GAP 14.8 mmol/L (8-16); CALCIUM 8.7 mg/dL (8.5-10.1); CARBON DIOXIDE 22.4 mmol/L (21.0-32.0); CREATININE - SERUM 1.1 mg/dL (0.6-1.3); POTASSIUM - SERUM 3.2 mmol/L (3.5-5.1)
[2019-09-01 06:04] LABS: ALBUMIN 2.9 g/dL (3.4-5.0); BILIRUBIN - TOTAL 0.15 mg/dL (0.2-1.3); PROTEIN - SERUM 6.9 g/dL (6.4-8.2)
[2019-09-01 06:15] LABS: APPEARANCE CLEAR (CLEAR); BILIRUBIN NEGATIVE (NEGATIVE); COLOR YELLOW (YELLOW); GLUCOSE NEGATIVE (NEGATIVE); KETONE NEGATIVE (NEGATIVE); NITRITE NEGATIVE (NEGATIVE); PROTEIN TRACE mg/dL (NEGATIVE); UROBILINOGEN NORMAL (NORMAL)
[2019-09-01 06:16] LABS: BACTERIA FEW /hpf (NEGATIVE); CALCIUM OXALATE CRYSTALS OCC /hpf (NONE SEEN); RED CELLS - URINE 0-5 /hpf (0-5); WHITE CELLS - URINE 0-5 /hpf (NEGATIVE); YEAST <1+ /hpf (NONE SEEN)
[2019-09-01] MEDS ORDERED: HYDROCODON-ACE1 EAC7 PO (06:29)
== END 2019-09-01 06:36 | disposition home or self-care (01) ==
LOC: D.ER 02:59
PROVIDERS: Emergency Medicine
DX: R06.00 Dyspnea, unspecified (principal); E87.6 Hypokalemia; J32.9 Chronic sinusitis, unspecified; M79.7 Fibromyalgia; E07.9 Disorder of thyroid, unspecified; I10 Essential (primary) hypertension

== ENCOUNTER 2019-09-15 23:03 | Inpatient (IN) | payer MEDICARE, OTHER ==
[~2019-09-15] VITALS: Ht 170.2 cm; Wt 108.6 kg
[~2019-09-15 23:03] MED LIST changes: +FEXOFENADINE H180 MG PO; +HYDROCODON-ACE1 EAC7 PO; +KEFLEX500 MG PO
[2019-09-15] MEDS ORDERED: SYNTHROID25 MCG PO (23:08)
[2019-09-15 23:37] LABS: BASOPHILS 0.3 % (0-2); EOSINOPHILS 3.2 % (0-7); HEMATOCRIT 34.4 % (36.0-48.0); HEMOGLOBIN 11.2 g/dL (12-16); IMMATURE GRANULOCYTES 0.9 % (0-5); LYMPHOCYTES 31.9 % (15-50); MCHC 32.6 g/dL (31.0-37.0); MCV 89.1 fL (80.0-100.0); MEAN PLATELET VOLUME 8.5 fL (7.4-10.4); MONOCYTES 5.2 % (2-11); NEUTROPHILS 58.5 % (40-80); PLATELET COUNT 384 10x3/uL (130-400); RBC 3.86 10x6/uL (4.00-5.40); RDW 16.9 % (11.5-14.5); WBC 6.9 10x3/uL (4.8-10.8)
[2019-09-15 23:49] LABS: APTT 29.4 SECONDS (22.8-39.4); CALC OSMOLALITY 277 mosm/kg (275-300); CALCIUM 8.8 mg/dL (8.5-10.1); CARBON DIOXIDE 23.4 mmol/L (21.0-32.0); CHLORIDE - SERUM 104 mmol/L (98-107); CREATININE - SERUM 0.9 mg/dL (0.6-1.3); GLUCOSE 76 mg/dL (74-106); POTASSIUM - SERUM 3.6 mmol/L (3.5-5.1); PROTIME 12.7 SECONDS (11.6-15.0); SODIUM 139 mmol/L (136-145); UREA NITROGEN 15 mg/dL (7-18); eGFR NON AFRICAN AMERICAN 70 mL/min (90-120)
[2019-09-16 00:03] LABS: ALBUMIN 2.9 g/dL (3.4-5.0); ALKALINE PHOSPHATASE 131 U/L (46-116); ALT (SGPT) 16 U/L (10-68); BILIRUBIN - TOTAL 0.21 mg/dL (0.2-1.3); PRO BNP 155 pg/mL (0-125); PROTEIN - SERUM 7.2 g/dL (6.4-8.2)
[2019-09-16 00:06] LABS: TROPONIN-I < 0.017 ng/mL (0.000-0.060)
[2019-09-16 00:54] VITALS: BP 141/84; BMI 36.1
--- NOTE | 2019-09-16 07:20 | NUR ---
RECIEVE REPORT. ALERT AND ORIENTED X4. SITTING UP IN BED. REPORTS NONPRODUCTIVE COUGH. DENIES ANY NEEDS AT THIS TIME. WALL OXYGEN AT 2L. CONTINUE PLAN OF CARE AND SAFETY PRECAUTIONS.
[2019-09-16 08:19] VITALS: BP 120/71
--- NOTE | 2019-09-16 12:23 | NUR ---
ALERT AND ORIENTED X4. SITTING UP IN BED CRYING. ASKING TO GO AMA. ENCOURAGE TO WAIT FOR DOCTOR. NOTIFY ROSHAN OF SITUATION. LT SHOULDER IV AND RT UPPER ARM IV INFILTRATED. REFUSE IV RESITE. REQUESTING PICC PLACEMENT. AGREES TO WAIT A LITTLE LONGER FOR DOCTOR.
[2019-09-16 12:30] VITALS: BP 149/81
[2019-09-16 14:29] LABS: % SATURATION 7 % (15-55); IRON 40 ug/dl (35-150); TOTAL IRON BIND CAPACITY 550 ug/dl (260-445); UNSAT IRON BIND CAPACITY 510 ug/dl (150-375)
[2019-09-16 15:31] VITALS: BP 111/63
--- NOTE | 2019-09-16 19:15 | NUR ---
BEDSIDE REPORT RECEIVED FROM DAY SHIFT, PT CARE ASSUMED. ITNRODUCED SELF AND WROTE NAME ON BOARD. PT SITTING UP IN BED, WATCHING TV, AAOX4. NON-PRODUCTIVE COUGH NOTED, DENIES SPUTUM. BOYFRIEND AT BEDSIDE. PT DENIES PAIN OR ANY OTHER NEEDS AT THIS TIME. BED IN LOWEST POSITION, SR X2, CALL LIGHT WITHIN REACH. WILL CONTINUE TO MONITOR.
[2019-09-16 20:00] VITALS: BP 106/52
[2019-09-16 23:00] VITALS: BP 144/75
[2019-09-17 04:00] VITALS: BP 133/76
[2019-09-17 05:09] LABS: BASOPHILS 0.1 % (0-2); EOSINOPHILS 0 % (0-7); HEMATOCRIT 35.4 % (36.0-48.0); HEMOGLOBIN 11.3 g/dL (12-16); IMMATURE GRANULOCYTES 0.5 % (0-5); LYMPHOCYTES 8.8 % (15-50); MCH 28.6 pg (26.0-34.0); MCHC 31.9 g/dL (31.0-37.0); MCV 89.6 fL (80.0-100.0); MEAN PLATELET VOLUME 8.9 fL (7.4-10.4); MONOCYTES 3.8 % (2-11); NEUTROPHILS 86.8 % (40-80); PLATELET COUNT 424 10x3/uL (130-400); RBC 3.95 10x6/uL (4.00-5.40); RDW 17.2 % (11.5-14.5)
[2019-09-17 05:17] LABS: WBC 11.9 10x3/uL (4.8-10.8)
[2019-09-17 05:52] LABS: ALBUMIN 3.2 g/dL (3.4-5.0); ANION GAP 14.3 mmol/L (8-16); BILIRUBIN - TOTAL 0.11 mg/dL (0.2-1.3); CALCIUM 9.6 mg/dL (8.5-10.1); CARBON DIOXIDE 25.8 mmol/L (21.0-32.0); MAGNESIUM - SERUM 2.3 mg/dL (1.8-2.4); POTASSIUM - SERUM 4.1 mmol/L (3.5-5.1); PROTEIN - SERUM 7.6 g/dL (6.4-8.2)
--- NOTE | 2019-09-17 07:33 | NUR ---
REPORT RECIEVED. PT SITTING UP IN BED. RR EVEN AND UNLABORED ON RA. PT HAS A R UPPER ARM MIDLINE INFUSING NS @30. BED LOCKED AND IN LOWEST POSITON, CALL LIGHT WITHIN REACH. WILL CTM
[2019-09-17 09:30] VITALS: BP 114/62
[2019-09-17 12:41] VITALS: Ht 170.2 cm; Wt 108.6 kg
--- NOTE | 2019-09-17 15:04 | NUR ---
I have reviewed this patient and I concur with the Shift Assessment completed by the Licensed Practical Nurse today this shift.
[2019-09-17 17:32] VITALS: BP 141/77
--- NOTE | 2019-09-17 19:10 | NUR ---
BEDSIDE REPORT RECEIVED FROM DAY SHIFT, PT CARE ASSUMED. WROTE NAME ON BOARD. PT SITTING ON SIDE OF BED, WATCHING TV, AAOX4. DENIES ANY NEEDS AT THIS TIME. BED IN LOWEST POSITION, SR X1, CALL LIGHT WITHIN REACH. WILL CONTINUE TO MONITOR.
[2019-09-17 20:00] VITALS: BP 114/68
[2019-09-18] VITALS (7 sets, daily range): BP systolic 125–162; BP diastolic 64–88
[2019-09-18 04:25] LABS: HEMATOCRIT 35.8 % (36.0-48.0); HEMOGLOBIN 11.2 g/dL (12-16); MCH 28.8 pg (26.0-34.0); MCHC 31.3 g/dL (31.0-37.0); MEAN PLATELET VOLUME 10.6 fL (7.4-10.4); PLATELET COUNT 275 10x3/uL (130-400); RBC 3.89 10x6/uL (4.00-5.40); RDW 17.4 % (11.5-14.5)
[2019-09-18 04:31] LABS: CALC OSMOLALITY 279 mosm/kg (275-300); CALCIUM 9.7 mg/dL (8.5-10.1); CARBON DIOXIDE 22.9 mmol/L (21.0-32.0); CHLORIDE - SERUM 106 mmol/L (98-107); CREATININE - SERUM 0.8 mg/dL (0.6-1.3); GLUCOSE 117 mg/dL (74-106); MAGNESIUM - SERUM 2.2 mg/dL (1.8-2.4); SODIUM 138 mmol/L (136-145); UREA NITROGEN 20 mg/dL (7-18); eGFR NON AFRICAN AMERICAN 80 mL/min (90-120)
[2019-09-18 04:52] LABS: EOSINOPHILS 1 % (0-7); LYMPHOCYTES 5 % (15-50); MONOCYTES 7 % (2-11); NEUTROPHILS 83 % (40-80); PLATELET ESTIMATE NORMAL
--- NOTE | 2019-09-18 08:00 | NUR ---
A/A/OX3. SITTING UP IN BED WATCHING TV. STATES SHE DOES NOT FEEL WELL TODAY SHE DID YESTERDAY. NO REQUESTS VOICED. RIGHT MIDLINE INTACT WITHOUT REDNESS OR EDEMA. ASSESSMENT COMPLETED AND WILL CONTINUE POC.
--- NOTE | 2019-09-18 12:15 | NUR ---
ATTEMPTED TO GIVEN SOLUMEDROL IV AND MIDLINE IS CLOTTED OFF. ORDER PER DR. MAYS TO CHANGE PAIN MED TO NORCO 10/325 AND CHANGE SOLUMEDROL TO IM INSTEAD OF IV. PT INFORMED OF CHANGE AND IS IN AGREEMENT.
[2019-09-18 14:31] LABS: APPEARANCE CLEAR (CLEAR); BILIRUBIN NEGATIVE (NEGATIVE); COLOR YELLOW (YELLOW); GLUCOSE NEGATIVE (NEGATIVE); KETONE NEGATIVE (NEGATIVE); NITRITE NEGATIVE (NEGATIVE); PROTEIN NEGATIVE (NEGATIVE); SPECIFIC GRAVITY 1.015 (1.005-1.020); UROBILINOGEN NORMAL (NORMAL)
--- NOTE | 2019-09-18 16:30 | NUR ---
DR. BUSTILLO ORDERED 300 UNITS HEP FLUSH TO TRY AND OPEN MIDLINE. THIS FIRST ATTEMPT UNSUCCESSFUL. WILL TRY AGAIN A LITTLE LATER.
--- NOTE | 2019-09-18 18:38 | NUR ---
REVIEWED ASSESSMENT BY SMOKING TOBACCO PACKER HAND AND I CONCUR.
--- NOTE | 2019-09-18 19:10 | NUR ---
BEDSIDE REPORT RECEIVED FROM DAY SHIFT, PT CARE ASSUMED. WROTE NAME ON BOARD. PT SITTING ON SIDE OF BED, AAOX4, VISITING WITH BOYFRIEND AT BEDSIDE. C/O THORACIC CAGE PAIN OF 7, ON A SCALE OF 0-10, R/T FREQUENT COUGHING. DENIES ANY OTHER NEEDS AT THIS TIME. BED IN LOWEST POSITION, SR X1, CALL LIGHT WITHIN REACH. WILL CONTINUE TO MONITOR.
--- NOTE | 2019-09-19 01:51 | NUR ---
22 GAUGE PIV INITIATED TO LEFT THUMB, X1 ATTEMPT, FLUSHES WITHOUT ISSUE, NO S/S INFILTRATION, PT TOLERATED WELL.
[2019-09-19 04:00] VITALS: BP 133/81
[2019-09-19 05:42] LABS: BASOPHILS 0.1 % (0-2); EOSINOPHILS 0 % (0-7); HEMATOCRIT 33.7 % (36.0-48.0); HEMOGLOBIN 10.7 g/dL (12-16); IMMATURE GRANULOCYTES 2.2 % (0-5); LYMPHOCYTES 10.4 % (15-50); MCH 28.6 pg (26.0-34.0); MCHC 31.8 g/dL (31.0-37.0); MCV 90.1 fL (80.0-100.0); MEAN PLATELET VOLUME 9.1 fL (7.4-10.4); NEUTROPHILS 81.3 % (40-80); RBC 3.74 10x6/uL (4.00-5.40); RDW 16.9 % (11.5-14.5); WBC 16.6 10x3/uL (4.8-10.8)
[2019-09-19 05:44] LABS: PLATELET COUNT 434 10x3/uL (130-400)
[2019-09-19 06:21] LABS: CALC OSMOLALITY 280 mosm/kg (275-300); CALCIUM 9.6 mg/dL (8.5-10.1); CHLORIDE - SERUM 106 mmol/L (98-107); CREATININE - SERUM 0.8 mg/dL (0.6-1.3); GLUCOSE 113 mg/dL (74-106); MAGNESIUM - SERUM 2.2 mg/dL (1.8-2.4); SODIUM 139 mmol/L (136-145); UREA NITROGEN 19 mg/dL (7-18); eGFR NON AFRICAN AMERICAN 80 mL/min (90-120)
[2019-09-19 06:38] LABS: POTASSIUM - SERUM 3.9 mmol/L (3.5-5.1)
--- NOTE | 2019-09-19 07:30 | NUR ---
A/A/OX4. DENIES ANY PAIN OR DISCOMFORT AND NO REQUESTS VOICED. IV PATENT TO LEFT THUMB AND FLUSHES WELL. ASSESSMENT COMPLETED AND WILL CONTINUE POC. PTS BOYFRIEND AT BEDSIDE.
[2019-09-19 09:00] VITALS: BP 154/86
--- NOTE | 2019-09-19 11:11 | NUR ---
MIDLINE IV REMAINS CLOTTED. ORDER RECEIVED TO REMOVE AND DONE BY MATT IRELAND. PT TOLERATED WELL.
[2019-09-19 13:04] VITALS: BP 141/87
--- NOTE | 2019-09-19 17:28 | NUR ---
REVIEWED ASSESSMENT COMPLETED BY BRAULIO MOORE AND I CONCUR.
[2019-09-19 17:42] VITALS: BP 156/83
--- NOTE | 2019-09-19 19:45 | NUR ---
PT RESTING IN BED WITH EYES CLOSED. RR EVEN AND UNLAbored. BOYFRIEND AT BEDSIDE. NO S/S OF DISTRESS AT THIS TIME. BED LOW CALL LIGHT WITHIN REACH. WILL CONTINUE TO MONITOR.
[2019-09-19 20:46] VITALS: BP 157/90
[2019-09-20] VITALS: BP 159/90
--- NOTE | 2019-09-20 00:20 | NUR ---
PT COMPLAINS OF PAIN 7/10 IN CHEST WITH COUGH. PRN MEDICATION GIVEN. BED LOW CALL LIGHT WITHIN REACH. WILL CONTINUE TO MONITOR.
--- NOTE | 2019-09-20 04:21 | NUR ---
I have reviewed this patient and I concur with the Shift Assessment completed by the Licensed Practical Nurse today this shift.
[2019-09-20 04:30] VITALS: BP 145/88
[2019-09-20 05:43] LABS: BASOPHILS 0.2 % (0-2); EOSINOPHILS 0 % (0-7); HEMATOCRIT 33.3 % (36.0-48.0); HEMOGLOBIN 10.8 g/dL (12-16); IMMATURE GRANULOCYTES 6.9 % (0-5); LYMPHOCYTES 19.9 % (15-50); MCHC 32.4 g/dL (31.0-37.0); MCV 89.5 fL (80.0-100.0); MEAN PLATELET VOLUME 8.8 fL (7.4-10.4); MONOCYTES 7.5 % (2-11); NEUTROPHILS 65.5 % (40-80); PLATELET COUNT 471 10x3/uL (130-400); RBC 3.72 10x6/uL (4.00-5.40); RDW 16.9 % (11.5-14.5); WBC 16.4 10x3/uL (4.8-10.8)
[2019-09-20 06:01] LABS: CALC OSMOLALITY 281 mosm/kg (275-300); CALCIUM 9.2 mg/dL (8.5-10.1); CARBON DIOXIDE 27.1 mmol/L (21.0-32.0); CHLORIDE - SERUM 105 mmol/L (98-107); CREATININE - SERUM 0.7 mg/dL (0.6-1.3); GLUCOSE 98 mg/dL (74-106); MAGNESIUM - SERUM 2.1 mg/dL (1.8-2.4); POTASSIUM - SERUM 3.4 mmol/L (3.5-5.1); SODIUM 140 mmol/L (136-145); UREA NITROGEN 22 mg/dL (7-18); eGFR NON AFRICAN AMERICAN > 90 mL/min (90-120)
--- NOTE | 2019-09-20 07:40 | NUR ---
ASSESSMENT DONE. WITHOUT DISTRESS NOTED
[2019-09-20 08:02] VITALS: BP 139/82
--- NOTE | 2019-09-20 11:04 | MORECARE ---
CASE MANAGEMENT DISCHARGE SUMMARY PATIENT: DRAKE VOGEL UNIT: [id number] ADM DATE: 09/16/19 AGE: 54 : 69 SEX: F ROOM/BED: D.2107 AUTHOR: ABILIO KUMAR PHYSICIAN: REFERRING PHYSICIAN: AJAY MAYS MD DATE OF SERVICE: 09/20/19 Discharge Plan Patient Name: DRAKE VOGEL [facility] [facility] 1965 Planned Disposition: Anticipated Discharge Date: Discharge Date: Expected LOS: Initial Reviewer: [email or web address] Initial Review Date: 09/20/2019 Generated: 09/20/19 12:03 pm DCPIA - Discharge Planning Initial Assessment Updated by [email or web address]: Francheska Ward on 09/20/19 11:00 am * Is the patient Alert and Oriented? Yes * PCP DANTE * Pharmacy [facility] [address] * Preadmission Environment Home with Family * ADLs Independent * Other Equipment NEBS * Community resources currently utilized None * Please name any agencies selected above. [facility] * Additional services required to return to the preadmission environment? Yes * Can the patient safely return to the preadmission environment? Yes * Has this patient been hospitalized within the prior 30 days at any hospital? Yes Patient Name: DRAKE VOGEL Page 19641 at 1104 All edits/amendments must be made on the electronic document DICTATION DATE: 09/20/191102 CHILD DEVELOPMENT TEACHER: MICHAEL 09/20/19 1103 RPT#: [id number] DC DATE: STATUS: ADM IN [facility] [address] [place] [address] END OF REPORT
--- NOTE | 2019-09-20 11:14 | MORECARE ---
CASE MANAGEMENT DISCHARGE SUMMARY PATIENT: DRAKE VOGEL UNIT: [id number] ADM DATE: 09/16/19 AGE: 54 : 69 SEX: F ROOM/BED: D.1004 AUTHOR: ABILIO KUMAR PHYSICIAN: REFERRING PHYSICIAN: AJAY MAYS MD DATE OF SERVICE: 09/20/19 Discharge Plan Patient Name: DRAKE VOGEL Facility: [facility]:[place] : 1965 Planned Disposition: Anticipated Discharge Date: Discharge Date: Expected LOS: Initial Reviewer: [email or web address] Initial Review Date: 09/20/2019 Generated: 09/20/19 12:13 pm Comments DCP- Discharge Planning Updated by [email or web address]: Francheska Ward on 09/20/19 10:[address] Patient Name: DRAKE VOGEL Admission Status: ER Accout number: [id number] Admission Date: 09-16-2019 : 1965 Admission Diagnosis: Attending: AJAY LOWERY Current LOS: 4 Anticipated DC Date: Planned Disposition: Primary Insurance: MEDICARE A & B Discharge Planning Comments: CM MET WITH PATIENT ABOUT DC PLANNING/NEEDS. STATES PLANS TO DC TO HOME WITH BOYFRIEND. HAS NEBULIZER AT HOME THROUGH [facility]. MAY NEED WALK TEST PRIOR TO DISCHARGE. NATE SIGNED FOR [facility] IF NEEDS 02 AND CARE 4 IF SHE NEEDS HH. CM TO FOLLOW AND ASSIST. Boarding House Manager: Francheska Ward DCPIA - Discharge Planning Initial Assessment Updated by [email or web address]: Francheska Ward on 09/20/19 11:00 am * Is the patient Alert and Oriented? Yes * PCP DANTE * Pharmacy [facility] [address] * Preadmission Environment Home with Family * ADLs Independent * Other Equipment NEBS * Community resources currently utilized None * Please name any agencies selected above. [facility] * Additional services required to return to the preadmission environment? Yes * Can the patient safely return to the preadmission environment? Yes * Has this patient been hospitalized within the prior 30 days at any hospital? Yes Last DP export: 09/20/19 10:04 Patient Name: DRAKE VOGEL Page 03172 at 1114 All edits/amendments must be made on the electronic document DICTATION DATE: 09/20/191112 COMPLEX MANAGER: MICHAEL 09/20/191112 RPT#: [id number] DC DATE: STATUS: ADM IN [facility] [address] [place] [address] END OF REPORT
[2019-09-20] MEDS ORDERED: VIBRAMYCIN 100100 MG PO (11:53)
[2019-09-20] MEDS ORDERED: PROTONIX40 MG PO (11:54)
[2019-09-20] MEDS ORDERED: PREDNISONE20 MG PO (11:55)
[2019-09-20 11:56] VITALS: BP 175/76
--- NOTE | 2019-09-20 13:21 | NUR ---
PER DR BUSTILLO FOR NEW ORDER OF WALK TEST FOR HOME AND PORTABLE OXYGEN TESTING. RT EDA IS ON THE FLOOR AND TOLD THIS.
--- NOTE | 2019-09-20 13:24 | NUR ---
WRITTEN SCRIPT GIVEN TO PATIENT OF ELIZABETH BELLA.
[2019-09-20] MEDS ORDERED: PROMETHAZINE W473 ML (13:28)
--- NOTE | 2019-09-20 13:43 | MORECARE ---
CASE MANAGEMENT DISCHARGE SUMMARY PATIENT: DRAKE VOGEL UNIT: [id number] ADM DATE: 09/16/19 AGE: 54 : 69 SEX: F ROOM/BED: D.2108 AUTHOR: JOSÉ,DOC PHYSICIAN: REFERRING PHYSICIAN: AJAY MAYS MD DATE OF SERVICE: 09/20/19 Discharge Plan Patient Name: DRAKE VOGEL Facility: [facility]:[place] : 1965 Planned Disposition: Home Anticipated Discharge Date: 09/20/19 Discharge Date: Expected LOS: 4 Initial Reviewer: [id number] Initial Review Date: 09/20/2019 Generated: 09/20/19 2:43 pm Comments DCP- Discharge Planning Updated by [email or web address]: Cornelio Patel on 09/20/19 12:[address] Patient Name: DRAKE VOGEL Encounter No: [id number] : 1965 Primary Insurance: MEDICARE A & B Anticipated DC Date: 09-20-2019 Planned Disposition: Home DCP follow-up note: CM MET WITH PT IN ROOM TO DISCUSS DISCHARGE NEEDS AND PLANNING. CM DISCUSSED AVAILABILITY OF HOME HEALTH, REHAB SERVICES AND MEDICAL EQUIPMENT. PT DENIES DISCHARGE NEEDS. SPOUSE TO TRANSPORT HOME AT DISCHARGE. IMPORTANT MESSAGE FROM MEDICARE PROVIDED AND EXPLAINED. REGIONAL PROGRAM MANAGER NURSE NOTIFIED. HUGO Tong DCP- Discharge Planning Updated by [email or web address]: Francheska Ward on 09/20/19 10:[address] Patient Name: DRAKE VOGEL Admission Status: ER Accout number: [id number] Admission Date: 09-16-2019 : 1965 Admission Diagnosis: Attending: AJAY LOWERY Current LOS: 4 Anticipated DC Date: Planned Disposition: Primary Insurance: MEDICARE A & B Discharge Planning Comments: CM MET WITH PATIENT ABOUT DC PLANNING/NEEDS. STATES PLANS TO DC TO HOME WITH BOYFRIEND. HAS NEBULIZER AT HOME THROUGH [facility]. MAY NEED WALK TEST PRIOR TO DISCHARGE. NATE SIGNED FOR [facility] IF NEEDS 02 AND CARE 4 IF SHE NEEDS HH. CM TO FOLLOW AND ASSIST. Commercial Leasing Manager: Francheska Ward DCPIA - Discharge Planning Initial Assessment Updated by [email or web address]: Francheska Ward on 09/20/19 11:00 am * Is the patient Alert and Oriented? Yes * PCP DANTE * Pharmacy [facility] [address] * Preadmission Environment Home with Family * ADLs Independent * Other Equipment NEBS * Community resources currently utilized None * Please name any agencies selected above. [facility] * Additional services required to return to the preadmission environment? Yes * Can the patient safely return to the preadmission environment? Yes * Has this patient been hospitalized within the prior 30 days at any hospital? Yes Coverage Notice Reviewer: [id number] Lauro Patel Notice Issued Date-Time: 09/20/2019 12:45 Notice Type: IM Discharge Notice Notice Delivered To: Patient Relationship to Patient: Case Management Director Name: Delivery Method: HAND - Hand Delivered Arlene Days: Prior Verbal Notification: Recipient Understood Notice: Yes Recipient Signature: Yes Med Rec Note Co-signed by Attending: Coverage Notice Comment: Last DP export: 09/20/19 10:14 Patient Name: DRAKE VOGEL Page [phone] at 1343 All edits/amendments must be made on the electronic document DICTATION DATE: 09/20/19 1343 BRAND SALES CONSULTANT: MICHAEL 09/20/19 1343 RPT#: [id number] DC DATE: STATUS: ADM IN [facility] [address] [place] [address] END OF REPORT
--- NOTE | 2019-09-20 13:58 | NUR ---
Nutrition Follow-up: Eating well. No questions re: cardiac diet info given last week. Noted d/c orders. Diet: Cardiac PO intake: 75-100% Wt: 239# (240# on 09/17) Labs noted: K+ 3.4 Meds noted: Prednisone, KDur -Continue current diet as tolerated. -RD following.
--- NOTE | 2019-09-20 14:42 | NUR ---
I have reviewed this patient and I concur with the Shift Assessment completed by the Licensed Practical Nurse today this shift.
--- NOTE | 2019-09-20 14:56 | MORECARE ---
CASE MANAGEMENT DISCHARGE SUMMARY PATIENT: DRAKE VOGEL UNIT: [id number] ADM DATE: 09/16/19 AGE: 54 : 69 SEX: F ROOM/BED: D.2103 AUTHOR: JOSÉ,DOC PHYSICIAN: REFERRING PHYSICIAN: AJAY MAYS MD DATE OF SERVICE: 09/20/19 Discharge Plan Patient Name: DRAKE VOGEL Facility: [facility]:[place] : 1965 Planned Disposition: Home Anticipated Discharge Date: 09/20/19 Discharge Date: Expected LOS: 4 Initial Reviewer: [id number] Initial Review Date: 09/20/2019 Generated: 09/20/19 3:56 pm Comments DCP- Discharge Planning Updated by [email or web address]: Cornelio Patel on 09/20/19 12:[address] Patient Name: DRAKE VOGEL Encounter No: [id number] : 1965 Primary Insurance: MEDICARE A & B Anticipated DC Date: 09-20-2019 Planned Disposition: Home DCP follow-up note: CM MET WITH PT IN ROOM TO DISCUSS DISCHARGE NEEDS AND PLANNING. CM DISCUSSED AVAILABILITY OF HOME HEALTH, REHAB SERVICES AND MEDICAL EQUIPMENT. PT DENIES DISCHARGE NEEDS. SPOUSE TO TRANSPORT HOME AT DISCHARGE. IMPORTANT MESSAGE FROM MEDICARE PROVIDED AND EXPLAINED. NUCLEAR MEDICINE TECHNOLOGIST NURSE NOTIFIED. HUGO Tong DCP- Discharge Planning Updated by [email or web address]: Francheska Ward on 09/20/19 10:[address] Patient Name: DRAKE VOGEL Admission Status: ER Accout number: [id number] Admission Date: 09-16-2019 : 1965 Admission Diagnosis: Attending: AJAY LOWERY Current LOS: 4 Anticipated DC Date: Planned Disposition: Primary Insurance: MEDICARE A & B Discharge Planning Comments: CM MET WITH PATIENT ABOUT DC PLANNING/NEEDS. STATES PLANS TO DC TO HOME WITH BOYFRIEND. HAS NEBULIZER AT HOME THROUGH [facility]. MAY NEED WALK TEST PRIOR TO DISCHARGE. NATE SIGNED FOR [facility] IF NEEDS 02 AND CARE 4 IF SHE NEEDS HH. CM TO FOLLOW AND ASSIST. Supervisor Fleshing: Francheska Ward DCPIA - Discharge Planning Initial Assessment Updated by [email or web address]: Francheska Ward on 09/20/19 11:00 am * Is the patient Alert and Oriented? Yes * PCP DANTE * Pharmacy [facility] [address] * Preadmission Environment Home with Family * ADLs Independent * Other Equipment NEBS * Community resources currently utilized None * Please name any agencies selected above. [facility] * Additional services required to return to the preadmission environment? Yes * Can the patient safely return to the preadmission environment? Yes * Has this patient been hospitalized within the prior 30 days at any hospital? Yes External Providers External Provider: Glory Simmons Next Contact Date: 09/20/2019 Service Request Date: Service Type: Resolution: Reviewer: Comments: Coverage Notice Reviewer: [id number] Lauro Patel Notice Issued Date-Time: 09/20/2019 12:45 Notice Type: IM Discharge Notice Notice Delivered To: Patient Relationship to Patient: Drop Man Name: Delivery Method: HAND - Hand Delivered Arlene Days: Prior Verbal Notification: Recipient Understood Notice: Yes Recipient Signature: Yes Med Rec Note Co-signed by Attending: Coverage Notice Comment: Last DP export: 09/20/19 12:43 Patient Name: DRAKE VOGEL Page 96155 at 1456 All edits/amendments must be made on the electronic document DICTATION DATE: 09/20/191455 GO CART MECHANIC: MICHAEL 09/20/191455 RPT#: [id number] DC DATE: STATUS: ADM IN [facility] [address] [place] [address] END OF REPORT
--- NOTE | 2019-09-20 15:07 | MORECARE ---
CASE MANAGEMENT DISCHARGE SUMMARY PATIENT: DRAKE VOGEL UNIT: [id number] ADM DATE: 09/16/19 AGE: 54 : 69 SEX: F ROOM/BED: D.2108 AUTHOR: JOSÉ,DOC PHYSICIAN: REFERRING PHYSICIAN: AJAY MAYS MD DATE OF SERVICE: 09/20/19 Discharge Plan Patient Name: DRAKE VOGEL Facility: [facility]:[place] : 1965 Planned Disposition: Home Anticipated Discharge Date: 09/20/19 Discharge Date: Expected LOS: 4 Initial Reviewer: [id number] Initial Review Date: 09/20/2019 Generated: 09/20/19 4:07 pm Comments DCP- Discharge Planning Updated by [email or web address]: Cornelio Patel on 09/20/19 1:[address] Patient Name: DRAKE VOGEL Encounter No: [id number] : 1965 Primary Insurance: MEDICARE A & B Anticipated DC Date: 09-20-2019 Planned Disposition: Home DCP follow-up note: CM RECEIVED ORDER FOR OXYGEN TO DISCHARGE HOME TODAY. CM MET WITH PT IN ROOM, OFFERED PROVIDER LISTING. PT STATES SHE WANTS OXYGEN FROM HER PROVIDER OF NEBULIZER, [facility]. CHOICE SIGNED. CM CALLED [facility], , SPOKE TO FRANCHESKA AND PROVIDED REFERRAL INFORMATION. CM FAXED REFERRAL TO [facility], . FRANCHESKA ADVISED THEY WILL DELIVER PORTABLE OXYGEN TO HOSPITAL TODAY AND WILL ARRANGE HOME OXYGEN WHEN PT ARRIVES AT HOME AFTER DISCHARGE. PT ADVISED, DENIES FURTHER NEEDS. SERVICE TECHNICIAN NURSE NOTIFIED. HUGO Tong DCP- Discharge Planning Updated by [id number]: Cornelio Patel on 09/20/19 12:[address] Patient Name: DRAKE VOGEL Encounter No: [id number] : 1965 Primary Insurance: MEDICARE A & B Anticipated DC Date: 09-20-2019 Planned Disposition: Home DCP follow-up note: CM MET WITH PT IN ROOM TO DISCUSS DISCHARGE NEEDS AND PLANNING. CM DISCUSSED AVAILABILITY OF HOME HEALTH, REHAB SERVICES AND MEDICAL EQUIPMENT. PT DENIES DISCHARGE NEEDS. SPOUSE TO TRANSPORT HOME AT DISCHARGE. IMPORTANT MESSAGE FROM MEDICARE PROVIDED AND EXPLAINED. SERVICE TECHNICIAN NURSE NOTIFIED. Cornelio Patel, CASE MANAGEMENT DCP- Discharge Planning Updated by [email or web address]: Francheska Sylvia on 09/20/19 10:[address] Patient Name: DRAKE VOGEL Admission Status: ER Accout number: [id number] Admission Date: 09-16-2019 : 1965 Admission Diagnosis: Attending: AJAY LOWERY Current LOS: 4 Anticipated DC Date: Planned Disposition: Primary Insurance: MEDICARE A & B Discharge Planning Comments: CM MET WITH PATIENT ABOUT DC PLANNING/NEEDS. STATES PLANS TO DC TO HOME WITH BOYFRIEND. HAS NEBULIZER AT HOME THROUGH [facility]. MAY NEED WALK TEST PRIOR TO DISCHARGE. NATE SIGNED FOR [facility] IF NEEDS 02 AND CARE 4 IF SHE NEEDS HH. CM TO FOLLOW AND ASSIST. Woodworking Machine Feeder: Francheska Ward DCPIA - Discharge Planning Initial Assessment Updated by [email or web address]: Francheska Sylvia on 09/20/19 11:00 am * Is the patient Alert and Oriented? Yes * PCP DANTE * Pharmacy [facility] [address] * Preadmission Environment Home with Family * ADLs Independent * Other Equipment NEBS * Community resources currently utilized None * Please name any agencies selected above. [facility] * Additional services required to return to the preadmission environment? Yes * Can the patient safely return to the preadmission environment? Yes * Has this patient been hospitalized within the prior 30 days at any hospital? Yes Coverage Notice Reviewer: [id number] Lauro Patel Notice Issued Date-Time: 09/20/2019 12:45 Notice Type: IM Discharge Notice Notice Delivered To: Patient Relationship to Patient: Institutional Cook Name: Delivery Method: HAND - Hand Delivered Arlene Days: Prior Verbal Notification: Recipient Understood Notice: Yes Recipient Signature: Yes Med Rec Note Co-signed by Attending: Coverage Notice Comment: Reviewer: [id number] Lauro Patel Notice Issued Date-Time: 09/20/2019 14:40 Notice Type: Patient Choice Letter Notice Delivered To: Patient Relationship to Patient: Institutional Cook Name: Delivery Method: HAND - Hand Delivered Arlene Days: Prior Verbal Notification: Recipient Understood Notice: Yes Recipient Signature: Yes Med Rec Note Co-signed by Attending: Coverage Notice Comment: [facility] Last DP export: 09/20/19 1:56 Patient Name: DRAKE VOGEL Page [phone] at 1507 All edits/amendments must be made on the electronic document DICTATION DATE: 09/20/191506 LOG RAFT WORKER: MICHAEL 09/20/191506 RPT#: [id number] DC DATE: STATUS: ADM IN [facility] [address] [place] [address] END OF REPORT
--- NOTE | 2019-09-20 16:36 | NUR ---
DC AND RX GIVEN TO PT
--- NOTE | 2019-09-20 16:39 | NUR ---
DC HOME PER PERSONAL CAR
== END 2019-09-20 16:41 | disposition home or self-care (01) | DRG 202 ==
LOC: D.ER 23:03 → D.M2 09-16 00:11 → OBSVTIME 09-16 00:11 → D.M2 09-16 17:21
PROVIDERS: Family Medicine; ADMIT Family Medicine; ATTEND Family Medicine
PROC: 05HB33Z Insertion of Infusion Device into Right Basilic Vein, Percutaneous Approach (ICD-10-PCS; principal; 2019-09-16)
PROC: B54MZZA Ultrasonography of Right Upper Extremity Veins, Guidance (ICD-10-PCS; 2019-09-16)
DX: J20.9 Acute bronchitis, unspecified (principal); J44.1 Chronic obstructive pulmonary disease with (acute) exacerbation; J44.0 Chronic obstructive pulmonary disease with (acute) lower respiratory infection; E03.9 Hypothyroidism, unspecified; I10 Essential (primary) hypertension; K21.9 Gastro-esophageal reflux disease without esophagitis; D64.9 Anemia, unspecified; G89.29 Other chronic pain; M54.9 Dorsalgia, unspecified; R04.0 Epistaxis; D50.9 Iron deficiency anemia, unspecified; E78.5 Hyperlipidemia, unspecified; F41.8 Other specified anxiety disorders

== ENCOUNTER 2019-10-18 17:19 | Inpatient (IN) | payer OTHER ==
[~2019-10-18] VITALS: Ht 170.2 cm; Wt 117.2 kg
[~2019-10-18 17:19] MED LIST changes: +PREDNISONE20 MG PO; +PROMETHAZINE W473 ML; +PROTONIX40 MG PO; +SYNTHROID25 MCG PO
[2019-10-18 18:43] LABS: BASOPHILS 0.3 % (0-2); EOSINOPHILS 2.3 % (0-7); HEMATOCRIT 34.5 % (36.0-48.0); HEMOGLOBIN 11.2 g/dL (12-16); IMMATURE GRANULOCYTES 1.8 % (0-5); LYMPHOCYTES 23.8 % (15-50); MCH 29.2 pg (26.0-34.0); MCHC 32.5 g/dL (31.0-37.0); MCV 90.1 fL (80.0-100.0); MEAN PLATELET VOLUME 8.5 fL (7.4-10.4); MONOCYTES 5.7 % (2-11); NEUTROPHILS 66.1 % (40-80); PLATELET COUNT 498 10x3/uL (130-400); RBC 3.83 10x6/uL (4.00-5.40); WBC 11.5 10x3/uL (4.8-10.8)
[2019-10-18 19:06] LABS: ANION GAP 15.6 mmol/L (8-16); CALCIUM 8.9 mg/dL (8.5-10.1); CARBON DIOXIDE 26.7 mmol/L (21.0-32.0); CREATININE - SERUM 0.9 mg/dL (0.6-1.3); POTASSIUM - SERUM 4.3 mmol/L (3.5-5.1)
[2019-10-18 19:12] LABS: ALBUMIN 3.3 g/dL (3.4-5.0); BILIRUBIN - TOTAL 0.17 mg/dL (0.2-1.3); PROTEIN - SERUM 7.4 g/dL (6.4-8.2)
[2019-10-18 19:35] LABS: CKMB 0.1 U/L (0.0-3.6); CREATINE KINASE 68 UL (21-215); INR 0.97 (0.85-1.17); PROTIME 12.9 SECONDS (11.6-15.0)
[2019-10-18 19:39] LABS: TROPONIN-I < 0.017 ng/mL (0.000-0.060)
--- NOTE | 2019-10-18 20:01 | NUR ---
PT LAYING IN BED. RESPIRATIONS ARE EVEN AND UNLABORED NO DISTRESS NOTED. COLOR WNL FOR RACE. WILL CONTINUE TO MONITOR PATIENT. FAMILY AT BEDSIDE.
[2019-10-18 20:03] VITALS: BP 126/70
[2019-10-18 21:04] VITALS: BP 115/74
--- NOTE | 2019-10-18 21:40 | NUR ---
PT LAYING IN BED. RESPIRATIONS ARE EVEN AND UNLABORED. NO DISTRESS NOTED. COLOR WNL FOR RACE. WILL CONTINUE TO MONITOR
--- NOTE | 2019-10-18 22:10 | NUR ---
CALLED REPORT TO
--- NOTE | 2019-10-18 22:42 | NUR ---
RECIEVED TO ROOM 2127 FROM ER VIA WC. PT A&O. RESPERATIONS NONLABORED AT THIS TIME BUT PT STATES SHE FEEL OUT OF BREATH. O2 AT 2 LITERS VIA NC, PT STATES THAT SHE ONLY WEARS O2 AT HOME AT BED TIME DUE TO SLEEP APNEA. IV TO RIGHT AC WITH NS INFUSING AT 50 CC/HR, IV SITE CLEAN AND DRY. HISTORY AND MED REC OBTAINED. PT ASKING FOR PAIN MEDS, STATES THAT HER RIB CAGE AND BACK HURT EVERY TIME SHE TAKES IN A BREATH. RATES PAIN AT A 7 ON PAIN SCALE. INFORMED HER THAT I WILL CALL THE VOTING MACHINE MECHANIC PRIMER CHARGING TOOL SETTER AND ASK FOR PAIN MEDICATION. NO OTHER NEEDS VOICED AT THIS TIME, BED LOW, CL IN REACH, VISITIOR AT BED SIDE.
[2019-10-19 00:17] VITALS: BP 119/70; BMI 39.4
[2019-10-19 04:30] VITALS: BP 117/64
[2019-10-19 07:09] LABS: BASOPHILS 0.1 % (0-2); EOSINOPHILS 0.1 % (0-7); HEMATOCRIT 34.4 % (36.0-48.0); HEMOGLOBIN 11.3 g/dL (12-16); IMMATURE GRANULOCYTES 1.5 % (0-5); LYMPHOCYTES 11.6 % (15-50); MCH 29.4 pg (26.0-34.0); MCHC 32.8 g/dL (31.0-37.0); MCV 89.6 fL (80.0-100.0); MEAN PLATELET VOLUME 8.4 fL (7.4-10.4); MONOCYTES 0.7 % (2-11); PLATELET COUNT 482 10x3/uL (130-400); RBC 3.84 10x6/uL (4.00-5.40); RDW 16.1 % (11.5-14.5); WBC 12.3 10x3/uL (4.8-10.8)
[2019-10-19 07:43] LABS: APTT 31.4 SECONDS (22.8-39.4)
[2019-10-19 07:47] LABS: INR 1.07 (0.85-1.17); PROTIME 13.9 SECONDS (11.6-15.0)
[2019-10-19 07:58] LABS: ALBUMIN 3.1 g/dL (3.4-5.0); ALKALINE PHOSPHATASE 120 U/L (46-116); ALT (SGPT) 14 U/L (10-68); BILIRUBIN - TOTAL 0.19 mg/dL (0.2-1.3); CALC OSMOLALITY 282 mosm/kg (275-300); CARBON DIOXIDE 20.9 mmol/L (21.0-32.0); CHLORIDE - SERUM 102 mmol/L (98-107); CKMB 0.4 U/L (0.0-3.6); CREATINE KINASE 63 UL (21-215); CREATININE - SERUM 1.1 mg/dL (0.6-1.3); GLUCOSE 218 mg/dL (74-106); MAGNESIUM - SERUM 2.1 mg/dL (1.8-2.4); PHOSPHOROUS 2.2 mg/dL (2.5-4.9); POTASSIUM - SERUM 4.1 mmol/L (3.5-5.1); PROTEIN - SERUM 7.8 g/dL (6.4-8.2); SODIUM 137 mmol/L (136-145); TROPONIN-I < 0.017 ng/mL (0.000-0.060); UREA NITROGEN 18 mg/dL (7-18); eGFR NON AFRICAN AMERICAN 55 mL/min (90-120)
--- NOTE | 2019-10-19 08:05 | NUR ---
PT'S RIGHT AC 22G IV INFILTRATED. DC'D WITH CTAH INTACT. PT HAS NO VEINS TO STICK. WILL CALL VASCULAR ACCES NURSE TO START IV.
--- NOTE | 2019-10-19 08:08 | NUR ---
SPOKE WITH ZAN VASCULAR ACCESS NURSE AND SHE STATES SHE WILL COME DO IV.
--- NOTE | 2019-10-19 08:09 | NUR ---
URINE SPECIMEN CUP AND SPUTUM COLLECTIOB CUP GIVEN TO PT AND INSTRUCTIONS GIVEN ON HOWTO COLLECT. PT VERBALIZED UNDERSTANDING.
--- NOTE | 2019-10-19 09:00 | NUR ---
ZAN GUTIERREZ INSERTED A 22G IV IN RIGHT HAND.
--- NOTE | 2019-10-19 09:15 | NUR ---
PT STATED TO ME SHE IS WANTING SOMETHING FOR COUGH AND THAT PT SHE KEEPS HAVING EPISODES OF FEELING LIKE SHE IS ABOUT TO START SWEATING AND THEN WILL HAVE A SHARP STABBING PAIN ON HER RIGHT SIDE BELOW HER RIBS. SHE STATES IT HAPPENED LAST NIGHT AND EARLIER TODAY. I STATED TO HER THE NURSE PRACTIONER IS ROUNDING NOW AND SHE CAN TELL HER I ALSO STATED I WILL TELL HER. PT VERBALIZED UNDERSTANDING.
[2019-10-19 09:58] VITALS: BP 126/74
--- NOTE | 2019-10-19 10:00 | NUR ---
SPOKE WITH TERI OAKES THAT PT IS WANTING SOMETHING FOR COUGH AND THAT PT STATES SHE KEEPS HAVING EPISODES OF FEEL ING LIKE SHE IS ABOUT TO START SWEATING AND THEN A SHARP STABBING PAIN ON HER RIGHT SIDE BELOW HER RIBS. SHE VERBALIZED UNDERSTANDING AND STATES SHE'LL SEE PT. I VERBALIZED UNDERSTANING.
[2019-10-19 10:26] LABS: APPEARANCE CLEAR (CLEAR); BILIRUBIN NEGATIVE (NEGATIVE); COLOR YELLOW (YELLOW); GLUCOSE 250 mg/dL (NEGATIVE); KETONE SMALL mg/dL (NEGATIVE); NITRITE NEGATIVE (NEGATIVE); PROTEIN NEGATIVE (NEGATIVE); SPECIFIC GRAVITY 1.015 (1.005-1.020); UROBILINOGEN NORMAL (NORMAL)
--- NOTE | 2019-10-19 11:51 | NUR ---
RIGHT HAND 22G IV INFILTRATED. PT CRYING BECAUSE SHE SAYS HER HAND HURTS AND SHE IS WANTING A MIDLINE BECAUSE THAT IS WHAT SHE HAD LAST TIME. I VERBALIZED UNDERSTANDING AND STATED I WILL CALL THE NURSE PRACTIONER AND VASCULAR ACCESS NURSE. RIGHT HAND 22G IV DC'D WITH CATH INTACT.
--- NOTE | 2019-10-19 11:54 | NUR ---
SPOKE WITH TERI OWENS AND SHE STATES TO ORDER A MIDLINE.
--- NOTE | 2019-10-19 12:51 | NUR ---
SPOKE WITH ZAN GUTIERREZCONCIERGE RECEPTIONIST ACCESS AND SHE STATES SHE RECEIVED THE ORDER AND SHE WILL DO MIDLINE. I VERBALIZED UNDERSTANDING.
--- NOTE | 2019-10-19 13:38 | NUR ---
ZAN GUTIERREZMANAGER INTENSIVE CARE ACCESS INSERTED A RIGHT UPPER ARM MIDLINE.
--- NOTE | 2019-10-19 14:35 | NUR ---
I have reviewed this patient and I concur with the Shift Assessment completed by the Licensed Practical Nurse today this shift.
[2019-10-19 14:40] VITALS: BP 134/67
[2019-10-19 15:34] VITALS: Ht 170.2 cm; Wt 117.2 kg
[2019-10-19 16:34] LABS: % SATURATION 14 % (15-55); IRON 82 ug/dl (35-150); TOTAL IRON BIND CAPACITY 554 ug/dl (260-445)
[2019-10-19 16:36] LABS: UNSAT IRON BIND CAPACITY 472 ug/dl (150-375)
[2019-10-19 17:32] VITALS: BP 120/66
--- NOTE | 2019-10-19 17:42 | NUR ---
PT NOW ON ELECTROLYTE PROTOCOL. PHOSPHORUS 2.2. CALLED PHARMACY AND STATED TO THEM I NEED A 15MM PHOSPHORUS IV BAG. THEY VEBRALIZED UNDERSTANDING AND STATED THEY WOULD BRING IT.
[2019-10-19 20:45] VITALS: BP 122/68
[2019-10-20 01:05] VITALS: BP 119/64
[2019-10-20 04:45] VITALS: BP 121/70
--- NOTE | 2019-10-20 07:36 | NUR ---
ASSESSMENT DONE. DENIES NEEDS
--- NOTE | 2019-10-20 09:26 | NUR ---
I have reviewed this patient and I concur with the Shift Assessment completed by the Licensed Practical Nurse today this shift.
[2019-10-20 10:21] VITALS: BP 145/77
[2019-10-20 14:52] VITALS: BP 119/73
[2019-10-20 18:22] VITALS: BP 111/60
--- NOTE | 2019-10-20 19:05 | NUR ---
EVENING ROUNDS COMPLETE, PT SITTING UP IN BED, FAMILY AT BEDSIDE. NO SIGNS OF DISTRESS. PT DENIES ANY PAIN OR NEEDS AT THIS TIME. AAOX4. O2 AT 2L, NC. CL IN REACH, BED IN LOWEST POSITION.
[2019-10-20 23:46] VITALS: BP 131/73
[2019-10-21 00:18] VITALS: BP 142/71
[2019-10-21 04:00] VITALS: BP 142/77
[2019-10-21 06:06] LABS: CARBON DIOXIDE 23.8 mmol/L (21.0-32.0); CHLORIDE - SERUM 105 mmol/L (98-107); POTASSIUM - SERUM 4.2 mmol/L (3.5-5.1); SODIUM 138 mmol/L (136-145); UREA NITROGEN 18 mg/dL (7-18); eGFR NON AFRICAN AMERICAN 80 mL/min (90-120)
[2019-10-21 06:16] LABS: CALC OSMOLALITY 280 mosm/kg (275-300); CREATININE - SERUM 0.8 mg/dL (0.6-1.3); GLUCOSE 152 mg/dL (74-106)
[2019-10-21 06:41] LABS: HEMATOCRIT 33.4 % (36.0-48.0); HEMOGLOBIN 10.9 g/dL (12-16); MCH 29.5 pg (26.0-34.0); MCHC 32.6 g/dL (31.0-37.0); MCV 90.5 fL (80.0-100.0); MEAN PLATELET VOLUME 8.6 fL (7.4-10.4); PLATELET COUNT 445 10x3/uL (130-400); RBC 3.69 10x6/uL (4.00-5.40); RDW 16.3 % (11.5-14.5); WBC 20.2 10x3/uL (4.8-10.8)
--- NOTE | 2019-10-21 07:50 | NUR ---
ALERT AND ORIENTED. TELEMERTY SHOWS SR 75. RIGHT UPPER ARM MIDLINE SL. UP AB MARY CARMEN. 02 AT 2 L/M PRN. DENIES ANY NEEDS AT PRESENT TIME. WILL MONITOR
[2019-10-21 09:18] VITALS: BP 142/84
[2019-10-21 09:48] LABS: LYMPHOCYTES 7 % (15-50); MONOCYTES 7 % (2-11); NEUTROPHILS 83 % (40-80); PLATELET ESTIMATE INCREASED
[2019-10-21 13:46] VITALS: BP 161/82
--- NOTE | 2019-10-21 14:15 | NUR ---
Nutrition Consult/Follow-up: Received consult for diabetic diet education. Pt reports that she is prediabetic and wants information. Wt gain of 70# over the last year. States she had back surgery in March and that this has impacted her mobility, as well as stress. Drinks ~6 cans soda per day (mainly Coke) and ~1/2 gallon sweet tea per day. Reports that she likes to snack on chips and that her sweet intake has increased. Diet: Cardiac PO intake: 75-100% Wt: 257.9# (10/21); 251.3# (10/19) Last BM: 10/21 Labs noted: Glu 152, A1C 5.8 Meds noted: Solumedrol, Micro K -Change to cardiac diabetic diet per pt request. -Provided education/written information on decreasing calorie/carb intake; pt v/u. Questions answered. -RD following.
[2019-10-21] MEDS ORDERED: LEVOFLOXACIN500 MG PO (15:02)
[2019-10-21] MEDS ORDERED: STERAPRED DS 1010 MG PO (15:04)
--- NOTE | 2019-10-21 15:34 | MORECARE ---
CASE MANAGEMENT DISCHARGE SUMMARY PATIENT: DRAKE VOGEL UNIT: [id number] ADM DATE: 10/18/19 AGE: 54 : 69 SEX: F ROOM/BED: D.2127 AUTHOR: ABILIO KUMAR PHYSICIAN: REFERRING PHYSICIAN: YANE CRAIG MD DATE OF SERVICE: 10/21/19 Discharge Plan Patient Name: DRAKE VOGEL [facility] : 1965 Planned Disposition: Home Anticipated Discharge Date: Discharge Date: Expected LOS: Initial Reviewer: [id number] Initial Review Date: 10/21/2019 Generated: 10/21/19 4:34 pm DCPIA - Discharge Planning Initial Assessment Updated by [email or web address]: Francheska Ward on 10/21/19 3:32 pm * Is the patient Alert and Oriented? Yes * PCP AURY * Pharmacy [facility] * Preadmission Environment Home with Family * ADLs Independent * Other Equipment 02,PORT, NEBS WITH [facility] * Additional services required to return to the preadmission environment? No * Can the patient safely return to the preadmission environment? Yes * Has this patient been hospitalized within the prior 30 days at any hospital? Yes Coverage Notice Reviewer: [id number] - Francheska Ward Notice Issued Date-Time: 10/21/2019 15:28 Notice Type: IM Discharge Notice Notice Delivered To: Patient Relationship to Patient: Orthodontic Treatment Coordinator Name: Delivery Method: HAND - Hand Delivered Arlene Days: Prior Verbal Notification: Recipient Understood Notice: Yes Recipient Signature: Yes Med Rec Note Co-signed by Attending: Coverage Notice Comment: Patient Name: DRAKE VOGEL Page 44784 at 1534 All edits/amendments must be made on the electronic document DICTATION DATE: 10/21/191533 FITNESS MANAGEMENT DIRECTOR: MICHAEL 10/21/19 153 RPT#: [id number] DC DATE: STATUS: ADM IN [facility] [address] [place] [address] END OF REPORT
--- NOTE | 2019-10-21 16:05 | MORECARE ---
CASE MANAGEMENT DISCHARGE SUMMARY PATIENT: DRAKE VOGEL UNIT: [id number] ADM DATE: 10/18/19 AGE: 54 : [birth year] SEX: F ROOM/BED: D.1954 AUTHOR: JOSÉ,DOC PHYSICIAN: REFERRING PHYSICIAN: YANE CRAIG MD DATE OF SERVICE: 10/21/19 Discharge Plan Patient Name: DRAKE VOGEL Facility: [facility]:[place] : 1965 Planned Disposition: Home Anticipated Discharge Date: Discharge Date: Expected LOS: Initial Reviewer: [id number] Initial Review Date: 10/21/2019 Generated: 10/21/19 5:04 pm Comments DCP- Discharge Planning Updated by [email or web address]: Francheska Ward on 10/21/19 3:[address] Patient Name: DRAKE VOGEL Admission Status: ER Accout number: [id number] Admission Date: 10-18-2019 : 1965 Admission Diagnosis: Attending: YANE CRIAG Current LOS: 3 Anticipated DC Date: Planned Disposition: Home Primary Insurance: [employer] Discharge Planning Comments: CM MET WITH PATIENT AND FAMILY AFTER OBTAINING VERBAL CONSENT. STATES PLANS TO DC TO HOME TODAY. DENIES NEEDS FOR HH, REHAB OR EQUIPMENT. IMM SIGNED. Vocational Guidance Counselor: Francheska Ward DCPIA - Discharge Planning Initial Assessment Updated by [email or web address]: Francheska Ward on 10/21/19 3:32 pm * Is the patient Alert and Oriented? Yes * PCP AURY * Pharmacy [facility] * Preadmission Environment Home with Family * ADLs Independent * Other Equipment 02,PORT, NEBS WITH [facility] * Additional services required to return to the preadmission environment? No * Can the patient safely return to the preadmission environment? Yes * Has this patient been hospitalized within the prior 30 days at any hospital? Yes Coverage Notice Reviewer: [id number] - Francheska Ward Notice Issued Date-Time: 10/21/2019 15:28 Notice Type: IM Discharge Notice Notice Delivered To: Patient Relationship to Patient: Medical Territory Manager Name: Delivery Method: HAND - Hand Delivered Arlene Days: Prior Verbal Notification: Recipient Understood Notice: Yes Recipient Signature: Yes Med Rec Note Co-signed by Attending: Coverage Notice Comment: Last DP export: 10/21/19 2:34 p Patient Name: DRAKE VOGEL Page 96079 at 1605 All edits/amendments must be made on the electronic document DICTATION DATE: 10/21/191603 SEISMOGRAPH SHOOTER: MICHAEL 10/21/191603 RPT#: [id number] DC DATE: STATUS: ADM IN [facility] [address] [place] [address] END OF REPORT
--- NOTE | 2019-10-21 18:08 | NUR ---
PT DISCHARGED. MID LINE DCD WITH TIP IN TACT. INSTRUCTIONS GIVEN TO PT. TO PRIVATE CAR PER WHEELCHAIR
--- NOTE | 2019-10-22 11:27 | MORECARE ---
CASE MANAGEMENT DISCHARGE SUMMARY PATIENT: DRAKE VOGEL UNIT: [id number] ADM DATE: 10/18/19 AGE: 54 : 69 SEX: F ROOM/BED: D.7801 AUTHOR: JOSÉ,DOC PHYSICIAN: REFERRING PHYSICIAN: YANE CRAIG MD DATE OF SERVICE: 10/22/19 Discharge Plan Patient Name: DRAKE VOGEL Facility: [facility]:[place] : 1965 Planned Disposition: Home Anticipated Discharge Date: Discharge Date: 10/21/2019 Expected LOS: Initial Reviewer: [email or web address] Initial Review Date: 10/21/2019 Generated: 10/22/19 12:26 pm Comments DCP- Discharge Planning Updated by [id number]: Francheska Ward on 10/21/19 3:[address] Patient Name: DRAKE VOGEL Admission Status: ER Accout number: [id number] Admission Date: 10-18-2019 : 1965 Admission Diagnosis: Attending: YANE CRAIG Current LOS: 3 Anticipated DC Date: Planned Disposition: Home Primary Insurance: [id number] Discharge Planning Comments: CM MET WITH PATIENT AND FAMILY AFTER OBTAINING VERBAL CONSENT. STATES PLANS TO DC TO HOME TODAY. DENIES NEEDS FOR HH, REHAB OR EQUIPMENT. IMM SIGNED. Contract Lead: Francheska Ward DCPIA - Discharge Planning Initial Assessment Updated by [id number]: Francheska Ward on 10/21/19 3:32 pm * Is the patient Alert and Oriented? Yes * PCP AURY * Pharmacy [facility] * Preadmission Environment Home with Family * ADLs Independent * Other Equipment 02,PORT, NEBS WITH [facility] * Additional services required to return to the preadmission environment? No * Can the patient safely return to the preadmission environment? Yes * Has this patient been hospitalized within the prior 30 days at any hospital? Yes Coverage Notice Reviewer: [id number] - Francheska Ward Notice Issued Date-Time: 10/21/2019 15:28 Notice Type: IM Discharge Notice Notice Delivered To: Patient Relationship to Patient: Operations Chief Name: Delivery Method: HAND - Hand Delivered Arlene Days: Prior Verbal Notification: Recipient Understood Notice: Yes Recipient Signature: Yes Med Rec Note Co-signed by Attending: Coverage Notice Comment: Last DP export: 1/16/20 3:05 p Patient Name: DRAKE VOGEL Page 96604 at 1127 All edits/amendments must be made on the electronic document DICTATION DATE: 10/22/196 FASHION BUYING INTERNSHIP: MICHAEL 10/22/19 1126 RPT#: [id number] DC DATE:10/21/19 STATUS: DIS IN [facility] [address] [place] [address] END OF REPORT
== END 2019-10-21 18:09 | disposition home or self-care (01) | DRG 189 ==
LOC: D.ER 17:19 → D.M2 20:25
PROVIDERS: Family Medicine; ADMIT Internal Medicine Nephrology; ATTEND Internal Medicine Nephrology
DX: J96.21 Acute and chronic respiratory failure with hypoxia (principal); J44.1 Chronic obstructive pulmonary disease with (acute) exacerbation; J44.0 Chronic obstructive pulmonary disease with (acute) lower respiratory infection; J20.9 Acute bronchitis, unspecified; D64.9 Anemia, unspecified; F41.8 Other specified anxiety disorders; I10 Essential (primary) hypertension; E78.5 Hyperlipidemia, unspecified; K21.9 Gastro-esophageal reflux disease without esophagitis; G89.29 Other chronic pain; M54.9 Dorsalgia, unspecified; E66.9 Obesity, unspecified; Z68.39 Body mass index [BMI] 39.0-39.9, adult

== ENCOUNTER 2019-10-29 21:34 | Emergency (ER) | payer OTHER ==
[~2019-10-29] VITALS: Ht 170.2 cm; Wt 116.6 kg
[~2019-10-29 21:34] MED LIST changes: +LEVOFLOXACIN500 MG PO
[2019-10-29 21:38] VITALS: Ht 170.2 cm; Wt 116.6 kg
[2019-10-29 21:58] LABS: BASOPHILS 0.2 % (0-2); EOSINOPHILS 0.8 % (0-7); HEMOGLOBIN 11.3 g/dL (12-16); IMMATURE GRANULOCYTES 1.1 % (0-5); MCH 29.1 pg (26.0-34.0); MCHC 32.3 g/dL (31.0-37.0); MCV 90.2 fL (80.0-100.0); MEAN PLATELET VOLUME 8.9 fL (7.4-10.4); MONOCYTES 7.1 % (2-11); NEUTROPHILS 62.8 % (40-80); RBC 3.88 10x6/uL (4.00-5.40); RDW 15.6 % (11.5-14.5); WBC 13.3 10x3/uL (4.8-10.8)
[2019-10-29 22:05] LABS: PLATELET COUNT 327 10x3/uL (130-400)
[2019-10-29 22:07] LABS: APTT 30.4 SECONDS (22.8-39.4); CALC OSMOLALITY 278 mosm/kg (275-300); CARBON DIOXIDE 22.1 mmol/L (21.0-32.0); CHLORIDE - SERUM 106 mmol/L (98-107); CREATININE - SERUM 0.9 mg/dL (0.6-1.3); INR 0.87 (0.85-1.17); POTASSIUM - SERUM 3.9 mmol/L (3.5-5.1); SODIUM 138 mmol/L (136-145); UREA NITROGEN 20 mg/dL (7-18); eGFR NON AFRICAN AMERICAN 70 mL/min (90-120)
[2019-10-29 22:08] LABS: GLUCOSE 99 mg/dL (74-106)
[2019-10-29 22:25] LABS: ALBUMIN 3.1 g/dL (3.4-5.0); ALKALINE PHOSPHATASE 93 U/L (30-120); ALT (SGPT) 15 U/L (10-68); BILIRUBIN - TOTAL 0.15 mg/dL (0.2-1.3); CKMB 0.6 U/L (0.0-3.6); CREATINE KINASE 42 UL (21-215); PRO BNP 68 pg/mL (0-125); PROTEIN - SERUM 7.3 g/dL (6.4-8.2)
[2019-10-29 22:28] LABS: TROPONIN-I < 0.017 ng/mL (0.000-0.060)
[2019-10-29] MEDS ORDERED: TESSALON PERLE100 MG PO (23:53)
[2019-10-29] MEDS ORDERED: ULTRAM50 MG PO (23:53)
[2019-10-29] MEDS ORDERED: FLUTICASONE PRO16 GM NASAL (23:53)
[2019-10-30 00:06] VITALS: BP 121/70
== END 2019-10-30 00:07 | disposition home or self-care (01) ==
LOC: D.ER 21:34
PROVIDERS: Family Medicine
DX: R07.89 Other chest pain (principal); R05 Cough; I10 Essential (primary) hypertension; J44.9 Chronic obstructive pulmonary disease, unspecified; Z99.81 Dependence on supplemental oxygen; K21.9 Gastro-esophageal reflux disease without esophagitis

== ENCOUNTER 2019-12-28 04:12 | Emergency (ER) | payer OTHER ==
[~2019-12-28] VITALS: Ht 170.2 cm; Wt 109.1 kg
[~2019-12-28 04:12] MED LIST changes: +TESSALON PERLE100 MG PO; +ZOFRAN ODT4 MG/UDTAB PO
[2019-12-28 04:17] VITALS: Ht 170.2 cm; Wt 109.1 kg
[2019-12-28] MEDS ORDERED: TYLENOL W/CODEI1 TAB PO (04:21)
[2019-12-28 05:26] LABS: HEMATOCRIT 33.9 % (36.0-48.0); HEMOGLOBIN 11.1 g/dL (12-16); LYMPHOCYTES 31.8 % (15-50); MCH 29.2 pg (26.0-34.0); MCHC 32.7 g/dL (31.0-37.0); MCV 89.2 fL (80.0-100.0); MEAN PLATELET VOLUME 8.6 fL (7.4-10.4); NEUTROPHILS 60.2 % (40-80); PLATELET COUNT 412 10x3/uL (130-400); RDW 14.3 % (11.5-14.5); WBC 10.7 10x3/uL (4.8-10.8)
[2019-12-28 05:36] LABS: CALC OSMOLALITY 271 mosm/kg (275-300); CALCIUM 8.6 mg/dL (8.5-10.1); CARBON DIOXIDE 27.6 mmol/L (21.0-32.0); CHLORIDE - SERUM 101 mmol/L (98-107); CREATININE - SERUM 0.8 mg/dL (0.6-1.3); GLUCOSE 99 mg/dL (74-106); POTASSIUM - SERUM 3.2 mmol/L (3.5-5.1); SODIUM 137 mmol/L (136-145); UREA NITROGEN 8 mg/dL (7-18); eGFR NON AFRICAN AMERICAN 80 mL/min (90-120)
[2019-12-28] MEDS ORDERED: AZITHROMYCIN500 MG PO (05:43)
[2019-12-28] MEDS ORDERED: TESSALON PERLE100 MG PO (05:43)
[2019-12-28 05:51] LABS: ALBUMIN 3.1 g/dL (3.4-5.0); ALKALINE PHOSPHATASE 122 U/L (30-120); ALT (SGPT) 16 U/L (10-68); BILIRUBIN - TOTAL 0.12 mg/dL (0.2-1.3); PRO BNP 130 pg/mL (0-125); PROTEIN - SERUM 7.2 g/dL (6.4-8.2); THYROID STIMULATING HORMONE 2.59 uIU/mL (0.36-3.74); TROPONIN-I < 0.017 ng/mL (0.000-0.060)
[2019-12-28 06:29] VITALS: BP 150/87
== END 2019-12-28 06:29 | disposition home or self-care (01) ==
LOC: D.ER 04:12
PROVIDERS: Family Medicine
DX: J20.9 Acute bronchitis, unspecified (principal); I10 Essential (primary) hypertension; J44.9 Chronic obstructive pulmonary disease, unspecified; Z99.81 Dependence on supplemental oxygen; K21.9 Gastro-esophageal reflux disease without esophagitis; R07.89 Other chest pain

== ENCOUNTER 2020-03-12 00:32 | Inpatient (IN) | payer OTHER ==
[~2020-03-12] VITALS: Ht 170.2 cm; Wt 116.1 kg
[~2020-03-12 00:32] MED LIST changes: +AZITHROMYCIN500 MG PO; +TYLENOL W/CODEI1 TAB PO
[2020-03-12 00:54] LABS: BASOPHILS 0.2 % (0-2); EOSINOPHILS 0.2 % (0-7); HEMATOCRIT 34.4 % (36.0-48.0); HEMOGLOBIN 10.8 g/dL (12-16); IMMATURE GRANULOCYTES 0.6 % (0-5); LYMPHOCYTES 24.7 % (15-50); MCH 27.8 pg (26.0-34.0); MCHC 31.4 g/dL (31.0-37.0); MCV 88.7 fL (80.0-100.0); MEAN PLATELET VOLUME 8.6 fL (7.4-10.4); MONOCYTES 5.8 % (2-11); NEUTROPHILS 68.5 % (40-80); PLATELET COUNT 368 10x3/uL (130-400); RBC 3.88 10x6/uL (4.00-5.40); RDW 16.5 % (11.5-14.5); WBC 14.2 10x3/uL (4.8-10.8)
[2020-03-12 01:02] LABS: CALC OSMOLALITY 275 mosm/kg (275-300); CALCIUM 9.1 mg/dL (8.5-10.1); CARBON DIOXIDE 24.3 mmol/L (21.0-32.0); CHLORIDE - SERUM 102 mmol/L (98-107); CREATININE - SERUM 1.1 mg/dL (0.6-1.3); GLUCOSE 112 mg/dL (74-106); POTASSIUM - SERUM 3.3 mmol/L (3.5-5.1); SODIUM 137 mmol/L (136-145); UREA NITROGEN 15 mg/dL (7-18); eGFR NON AFRICAN AMERICAN 55 mL/min (90-120)
[2020-03-12 01:03] LABS: INR 0.97 (0.85-1.17); PROTIME 12.9 SECONDS (11.6-15.0)
[2020-03-12 01:04] LABS: APTT 28.5 SECONDS (22.8-39.4)
[2020-03-12 01:19] LABS: ALBUMIN 3.4 g/dL (3.4-5.0); ALKALINE PHOSPHATASE 112 U/L (30-120); ALT (SGPT) 26 U/L (10-68); BILIRUBIN - TOTAL 0.12 mg/dL (0.2-1.3); CKMB 0.9 U/L (0.0-3.6); CREATINE KINASE 108 UL (21-215); PRO BNP 259 pg/mL (0-125); PROTEIN - SERUM 7.6 g/dL (6.4-8.2); TROPONIN-I < 0.017 ng/mL (0.000-0.060)
--- NOTE | 2020-03-12 03:00 | NUR ---
MAG SULFATE COMPLETE
[2020-03-12 03:54] VITALS: BP 130/67; Ht 170.2 cm; Wt 116.1 kg
[2020-03-12 04:50] LABS: BASOPHILS 0.2 % (0-2); EOSINOPHILS 0.2 % (0-7); HEMATOCRIT 34.3 % (36.0-48.0); HEMOGLOBIN 10.7 g/dL (12-16); IMMATURE GRANULOCYTES 0.6 % (0-5); LYMPHOCYTES 14.5 % (15-50); MCH 27.8 pg (26.0-34.0); MCHC 31.2 g/dL (31.0-37.0); MCV 89.1 fL (80.0-100.0); MEAN PLATELET VOLUME 8.7 fL (7.4-10.4); MONOCYTES 2.2 % (2-11); NEUTROPHILS 82.3 % (40-80); PLATELET COUNT 388 10x3/uL (130-400); RBC 3.85 10x6/uL (4.00-5.40); RDW 16.6 % (11.5-14.5); WBC 12.5 10x3/uL (4.8-10.8)
[2020-03-12 05:01] LABS: ANION GAP 14.9 mmol/L (8-16); CALCIUM 9.1 mg/dL (8.5-10.1); CARBON DIOXIDE 21.5 mmol/L (21.0-32.0); POTASSIUM - SERUM 3.4 mmol/L (3.5-5.1)
--- NOTE | 2020-03-12 07:20 | NUR ---
RECIEVE REPORT. ALERT AND ORIENTED X4. UP AMBULATING IN ROOM. WANTING TO LEAVE AMA. ENCOURAGE TO WAIT FOR DOCTOR TO ARRIVE. PAGE ROSHAN OWENS. EXPECTED TO ROUND AROUND NOON PER ROSHAN.
[2020-03-12 08:42] VITALS: BP 122/62
[2020-03-12 13:55] VITALS: BP 133/72
[2020-03-12 14:46] LABS: NITRITE NEGATIVE (NEGATIVE)
[2020-03-12 14:47] LABS: BILIRUBIN NEGATIVE (NEGATIVE); GLUCOSE NEGATIVE (NEGATIVE); KETONE NEGATIVE (NEGATIVE); UROBILINOGEN NORMAL (NORMAL)
[2020-03-12 16:16] VITALS: BP 110/68
--- NOTE | 2020-03-12 18:23 | NUR ---
ALERT AND ORIENTED X4. SITTING UP IN BED. DENIES ANY NEEDS AT THIS TIME. NO CHANGE. VITALS STABLE. PREPARE HAND OFF REPORT.
--- NOTE | 2020-03-12 18:55 | NUR ---
BEDSIDE REPORT RECEIVED, PT CARE ASSUMED. INTRODUCED SELF AND WROTE NAME ON BOARD. PT SITTING UP ON SIDE OF BED, AAOX4. REQUESTING DIET MOE, PROVIDED. DENIES ANY OTHER NEEDS AT THIS TIME. BED IN LOWEST, SRX1, CALL LIGHT WITHIN REACH. WILL CTM.
[2020-03-12 20:30] VITALS: BP 114/62
[2020-03-13 00:30] VITALS: BP 109/42
[2020-03-13 04:30] VITALS: BP 124/65
--- NOTE | 2020-03-13 07:20 | NUR ---
RECIEVE REPORT. ALERT AND ORIENTED X4. SITTING UP IN BED. O2 @ 2L NC. NO SIGNS OF DISTRESS. DENIES ANY NEEDS AT THIS TIME. CONTINUE PLAN OF CARE AND SAFETY PRECAUTIONS.
[2020-03-13 07:51] VITALS: BP 106/57
[2020-03-13 08:04] LABS: BASOPHILS 0.1 % (0-2); EOSINOPHILS 0 % (0-7); HEMATOCRIT 32.3 % (36.0-48.0); HEMOGLOBIN 9.9 g/dL (12-16); IMMATURE GRANULOCYTES 0.8 % (0-5); LYMPHOCYTES 13.1 % (15-50); MCH 27.5 pg (26.0-34.0); MCHC 30.7 g/dL (31.0-37.0); MCV 89.7 fL (80.0-100.0); MEAN PLATELET VOLUME 8.7 fL (7.4-10.4); MONOCYTES 4.9 % (2-11); NEUTROPHILS 81.1 % (40-80); PLATELET COUNT 403 10x3/uL (130-400); RDW 16.9 % (11.5-14.5); WBC 13.7 10x3/uL (4.8-10.8)
[2020-03-13 08:15] LABS: CALC OSMOLALITY 280 mosm/kg (275-300); CALCIUM 9.3 mg/dL (8.5-10.1); CHLORIDE - SERUM 105 mmol/L (98-107); CREATININE - SERUM 0.8 mg/dL (0.6-1.3); GLUCOSE 112 mg/dL (74-106); MAGNESIUM - SERUM 2.4 mg/dL (1.8-2.4); PHOSPHOROUS 2.5 mg/dL (2.5-4.9); POTASSIUM - SERUM 3.5 mmol/L (3.5-5.1); SODIUM 140 mmol/L (136-145); UREA NITROGEN 16 mg/dL (7-18); eGFR NON AFRICAN AMERICAN 79 mL/min (90-120)
--- NOTE | 2020-03-13 10:05 | NUR ---
ALERT AND ORIENTED X4. COMES OUT IN [place] DEMANDING MUSCLE RELAXER LOUDLY. WHEN ADMINISTERING MEDICATION BECOMES VERBALLY AGGRESSIVE SAYING, "I'M NOT GOING TO FALL OUT AND IF I'M GIVEN ALL MY MEDICATIONS AT ONE TIME. YOU AREN'T EVEN GIVING ME IV STUFF." ENCOURAGE TO CALM DOWN AND EXPLAIN MEDICATION WAS IN HAND. PATIENT RESPONDS, "I DON'T HAVE TO CALM DOWN, JUST GO CALL DOCTOR TO DISCHARGE ME OR I'M LEAVING AMA." NOTIFY ROMAN LIGHT. "LET HER SIGN AMA PAPERS THEN," PER NADEGE. MATT JARA TAKES AMA PAPERS INTO PATIENTS ROOM. PATIENT STATES, "I SEE [facility]OR IS TOO CHICKEN TO COME IN HERE AND TALK TO ME (AFTER NABOR JUST WALKED BY A SPOKE TO PATIENT) AND I'M CALLING ADMINISTRATION BECAUSE NOONE IS WEARING GLOVES WHEN CHECKING MY VITAL SIGNS OR WEARING MASKS WHEN THEY COME IN MY ROOM. I WANT TO SPEAK WITH [employer] REP." EXPAIN MANAGERS IN MEETING. PATIENT THEN SIGNS AMA SHEET AND SAYS, "I DON'T CARE, I WILL BE CALLING LATER." RT FA IV REMOVED TIP INTACT. LEAVES FLOOR. REMAINS FREE FROM INJURY.
== END 2020-03-13 10:41 | disposition left against medical advice (07) | DRG 191 ==
LOC: D.ER 00:32 → D.M2 01:51
PROVIDERS: Family Medicine; Surgery; ADMIT Family Medicine; ATTEND Family Medicine
DX: J44.0 Chronic obstructive pulmonary disease with (acute) lower respiratory infection (principal); F17.213 Nicotine dependence, cigarettes, with withdrawal; Z68.41 Body mass index [BMI] 40.0-44.9, adult; J96.11 Chronic respiratory failure with hypoxia; J20.9 Acute bronchitis, unspecified; J44.1 Chronic obstructive pulmonary disease with (acute) exacerbation; E66.9 Obesity, unspecified; K21.9 Gastro-esophageal reflux disease without esophagitis; J30.9 Allergic rhinitis, unspecified; I10 Essential (primary) hypertension; E03.9 Hypothyroidism, unspecified; E78.5 Hyperlipidemia, unspecified; D50.9 Iron deficiency anemia, unspecified; E87.6 Hypokalemia; G89.29 Other chronic pain; M54.9 Dorsalgia, unspecified; R73.03 Prediabetes

== ENCOUNTER 2020-07-13 20:16 | Emergency (ER) | payer OTHER ==
[~2020-07-13] VITALS: Ht 170.2 cm; Wt 109.1 kg
[2020-07-13 20:24] VITALS: Ht 170.2 cm; Wt 109.1 kg
[2020-07-13 21:44] LABS: HEMATOCRIT 36.2 % (36.0-48.0); HEMOGLOBIN 11.6 g/dL (12-16); MCH 28.6 pg (26.0-34.0); MCV 89.2 fL (80.0-100.0); MEAN PLATELET VOLUME 8.5 fL (7.4-10.4); PLATELET COUNT 419 10x3/uL (130-400); RBC 4.06 10x6/uL (4.00-5.40); RDW 15.7 % (11.5-14.5)
[2020-07-13 21:52] LABS: CALC OSMOLALITY 271 mosm/kg (275-300); CALCIUM 9.4 mg/dL (8.5-10.1); CARBON DIOXIDE 22.6 mmol/L (21.0-32.0); CHLORIDE - SERUM 101 mmol/L (98-107); CREATININE - SERUM 0.8 mg/dL (0.6-1.3); GLUCOSE 93 mg/dL (74-106); POTASSIUM - SERUM 3.8 mmol/L (3.5-5.1); SODIUM 136 mmol/L (136-145); UREA NITROGEN 13 mg/dL (7-18); eGFR NON AFRICAN AMERICAN 79 mL/min (90-120)
[2020-07-13 21:59] LABS: ALBUMIN 3.5 g/dL (3.4-5.0); ALKALINE PHOSPHATASE 118 U/L (30-120); ALT (SGPT) 20 U/L (10-68); BILIRUBIN - TOTAL 0.12 mg/dL (0.2-1.3); LYMPHOCYTES 26 % (15-50); MONOCYTES 7 % (2-11); NEUTROPHILS 67 % (40-80); PLATELET ESTIMATE INCREASED; PROTEIN - SERUM 7.8 g/dL (6.4-8.2)
[2020-07-14] MEDS ORDERED: LEVOFLOXACIN500 MG PO (00:19)
[2020-07-14] MEDS ORDERED: MEDROL DOSE PACK4 MG PO (00:19)
[2020-07-14] MEDS ORDERED: TYLENOL W/CODEI1 TAB PO (00:19)
[2020-07-14 00:56] VITALS: BP 126/79
== END 2020-07-14 00:56 | disposition home or self-care (01) ==
LOC: D.ER 20:16
PROVIDERS: Emergency Medicine
DX: J20.9 Acute bronchitis, unspecified (principal); J44.9 Chronic obstructive pulmonary disease, unspecified; K21.9 Gastro-esophageal reflux disease without esophagitis; Z72.0 Tobacco use

== ENCOUNTER 2020-12-02 01:13 | Emergency (ER) | payer OTHER ==
[~2020-12-02] VITALS: Ht 167.6 cm; Wt 104.5 kg
[~2020-12-02 01:13] MED LIST changes: +FUROSEMIDE20 MG PO; +LEVAQUIN750 MG PO; +OXYCODONE HCL10 MG PO; +PROAIR HFA8.5 G1 INH; +SYMBICORT 80-10.2 GM INH; +VISTARIL50 MG PO
[2020-12-02 01:17] VITALS: Ht 167.6 cm; Wt 104.5 kg
[2020-12-02 02:03] LABS: INFLUENZA TYPE A NEGATIVE (NEGATIVE); INFLUENZA TYPE B NEGATIVE (NEGATIVE); SARS-CoV-2 ANTIGEN NEGATIVE- SARS-COV-2 (NEGATIVE)
[2020-12-02 02:07] LABS: ANION GAP 19.2 mmol/L (8-16); CARBON DIOXIDE 22.1 mmol/L (21.0-32.0); CREATININE - SERUM 0.9 mg/dL (0.6-1.3); POTASSIUM - SERUM 3.3 mmol/L (3.5-5.1)
[2020-12-02 02:09] LABS: APTT 28.4 SECONDS (22.8-39.4); INR 1.13 (0.85-1.17); PROTIME 13.4 SECONDS (11.6-15.0)
[2020-12-02 02:10] LABS: D-DIMER-QUANTITATIVE 0.27 ug/mLFEU (0.20-0.54)
[2020-12-02 02:11] LABS: BASOPHILS 0.4 % (0-2); EOSINOPHILS 2.4 % (0-7); HEMATOCRIT 35.2 % (36.0-48.0); HEMOGLOBIN 11.2 g/dL (12-16); IMMATURE GRANULOCYTES 0.4 % (0-5); LYMPHOCYTE ABS# 3.36 10x3/uL (1.18-3.74); LYMPHOCYTES 26.4 % (15-50); MCH 25.5 pg (26.0-34.0); MCHC 31.8 g/dL (31.0-37.0); MEAN PLATELET VOLUME 8.6 fL (7.4-10.4); MONOCYTES 4.5 % (2-11); NEUTROPHIL ABS# 8.37 10x3/uL (1.56-6.13); NEUTROPHILS 65.9 % (40-80); PLATELET COUNT 474 10x3/uL (130-400); RDW 17.8 % (11.5-14.5); WBC 12.7 10x3/uL (4.8-10.8)
[2020-12-02 02:13] LABS: ALBUMIN 3.1 g/dL (3.4-5.0); BILIRUBIN - TOTAL 0.24 mg/dL (0.2-1.3); PROTEIN - SERUM 7.6 g/dL (6.4-8.2)
[2020-12-02] MEDS ORDERED: CLEOCIN HCL300 MG PO (02:43)
[2020-12-02] MEDS ORDERED: HYDROCODONE-AC1 EAC2 PO (02:43)
[2020-12-02] MEDS ORDERED: FLUTICASONE PRO16 GM NASAL (02:43)
[2020-12-02 04:30] VITALS: BP 128/81
== END 2020-12-02 03:50 | disposition home or self-care (01) ==
LOC: D.ER 01:13
PROVIDERS: Family Medicine
DX: J01.90 Acute sinusitis, unspecified (principal); S02.5XXA Fracture of tooth (traumatic), initial encounter for closed fracture; J44.9 Chronic obstructive pulmonary disease, unspecified; Z72.0 Tobacco use; R11.2 Nausea with vomiting, unspecified; R19.7 Diarrhea, unspecified; X58.XXXA Exposure to other specified factors, initial encounter

== ENCOUNTER 2020-12-13 18:04 | Emergency (ER) | payer OTHER ==
[~2020-12-13] VITALS: Ht 167.6 cm; Wt 106.8 kg
[~2020-12-13 18:04] MED LIST changes: +CLEOCIN HCL300 MG PO; +HYDROCODONE-AC1 EAC2 PO
[2020-12-13 18:13] VITALS: BP 137/71; Ht 167.6 cm; Wt 106.8 kg
[2020-12-13 18:58] LABS: BASOPHILS 0.2 % (0-2); EOSINOPHILS 1.6 % (0-7); HEMATOCRIT 32.6 % (36.0-48.0); HEMOGLOBIN 10.4 g/dL (12-16); IMMATURE GRANULOCYTES 0.9 % (0-5); LYMPHOCYTE ABS# 3.03 10x3/uL (1.18-3.74); LYMPHOCYTES 20.7 % (15-50); MCH 25.4 pg (26.0-34.0); MCHC 31.9 g/dL (31.0-37.0); MCV 79.5 fL (80.0-100.0); MEAN PLATELET VOLUME 8.2 fL (7.4-10.4); MONOCYTES 4.6 % (2-11); NEUTROPHIL ABS# 10.52 10x3/uL (1.56-6.13); PLATELET COUNT 398 10x3/uL (130-400); RDW 18.3 % (11.5-14.5); WBC 14.6 10x3/uL (4.8-10.8)
[2020-12-13 19:06] LABS: ANION GAP 15.2 mmol/L (8-16); CALCIUM 8.9 mg/dL (8.5-10.1); CARBON DIOXIDE 21.8 mmol/L (21.0-32.0); CREATININE - SERUM 0.9 mg/dL (0.6-1.3)
[2020-12-13 19:13] LABS: ALBUMIN 3.1 g/dL (3.4-5.0); BILIRUBIN - TOTAL 0.13 mg/dL (0.2-1.3); PROTEIN - SERUM 7.5 g/dL (6.4-8.2)
[2020-12-13 19:13] LABS: INFLUENZA TYPE A NEGATIVE (NEGATIVE); INFLUENZA TYPE B NEGATIVE (NEGATIVE); SARS-CoV-2 ANTIGEN NEGATIVE- SARS-COV-2 (NEGATIVE)
[2020-12-13] MEDS ORDERED: MEDROL DOSE PACK4 MG PO (20:09)
[2020-12-13] MEDS ORDERED: MUCINEX DM ER1 EAC1 PO (20:09)
[2020-12-13] MEDS ORDERED: ALBUTEROL SULF8.5 GM INH (20:09)
[2020-12-13] MEDS ORDERED: LEVAQUIN750 MG PO (20:09)
[2020-12-13 21:02] LABS: BILIRUBIN NEGATIVE (NEGATIVE); KETONE NEGATIVE (NEGATIVE); NITRITE NEGATIVE (NEGATIVE); UROBILINOGEN NORMAL mg/dL (< 2)
== END 2020-12-13 20:43 | disposition home or self-care (01) ==
LOC: D.ER 18:04
PROVIDERS: Family Medicine
DX: J18.9 Pneumonia, unspecified organism (principal); R05 Cough; R09.89 Other specified symptoms and signs involving the circulatory and respiratory systems; I10 Essential (primary) hypertension; J44.9 Chronic obstructive pulmonary disease, unspecified; K21.9 Gastro-esophageal reflux disease without esophagitis; Z72.0 Tobacco use

== ENCOUNTER 2021-02-10 00:35 | Emergency (ER) | payer OTHER ==
[~2021-02-10] VITALS: Ht 167.6 cm; Wt 106.8 kg
[~2021-02-10 00:35] MED LIST changes: +ALBUTEROL SULF8.5 GM INH
[2021-02-10 00:37] VITALS: Ht 167.6 cm; Wt 106.8 kg
[2021-02-10 01:19] LABS: CALC OSMOLALITY 276 mosm/kg (275-300); CALCIUM 9.3 mg/dL (8.5-10.1); CHLORIDE - SERUM 102 mmol/L (98-107); CREATININE - SERUM 0.9 mg/dL (0.6-1.3); GLUCOSE 103 mg/dL (74-106); POTASSIUM - SERUM 3.9 mmol/L (3.5-5.1); SODIUM 139 mmol/L (136-145); UREA NITROGEN 11 mg/dL (7-18); eGFR NON AFRICAN AMERICAN 69 mL/min (90-120)
[2021-02-10 01:32] LABS: ALBUMIN 3.3 g/dL (3.4-5.0); ALKALINE PHOSPHATASE 97 U/L (30-120); ALT (SGPT) 42 U/L (10-68); AMYLASE - SERUM 27 U/L (25-115); BILIRUBIN - TOTAL 0.39 mg/dL (0.2-1.3); LIPASE 97 U/L (73-393); PRO BNP 164 pg/mL (0-125); PROTEIN - SERUM 7.5 g/dL (6.4-8.2)
[2021-02-10 01:34] LABS: BASOPHILS 0.4 % (0-2); EOSINOPHILS 3.2 % (0-7); HEMATOCRIT 33.5 % (36.0-48.0); HEMOGLOBIN 10.5 g/dL (12-16); IMMATURE GRANULOCYTES 0.3 % (0-5); LYMPHOCYTE ABS# 2.37 10x3/uL (1.18-3.74); LYMPHOCYTES 32.8 % (15-50); MCHC 31.3 g/dL (31.0-37.0); MCV 79.8 fL (80.0-100.0); MONOCYTES 6.2 % (2-11); NEUTROPHIL ABS# 4.12 10x3/uL (1.56-6.13); NEUTROPHILS 57.1 % (40-80); PLATELET COUNT 492 10x3/uL (130-400); RDW 18.4 % (11.5-14.5); TROPONIN-I < 0.017 ng/mL (0.000-0.060); WBC 7.2 10x3/uL (4.8-10.8)
[2021-02-10 03:03] LABS: BILIRUBIN NEGATIVE (NEGATIVE); KETONE NEGATIVE (NEGATIVE); NITRITE NEGATIVE (NEGATIVE); UROBILINOGEN NORMAL mg/dL (< 2)
[2021-02-10 03:26] VITALS: BP 103/49
== END 2021-02-10 03:20 | disposition home or self-care (01) ==
LOC: D.ER 00:35
PROVIDERS: Student in an Organized Health Care Education/Training Program
DX: R10.9 Unspecified abdominal pain (principal); J44.9 Chronic obstructive pulmonary disease, unspecified; I10 Essential (primary) hypertension; K21.9 Gastro-esophageal reflux disease without esophagitis; R16.0 Hepatomegaly, not elsewhere classified